=== PATIENT | male | born 1960 | race Hispanic/Latino ===

== ENCOUNTER 2017-08-07 21:12 | Inpatient (IN) | payer OTHER ==
--- NOTE | 2017-08-07 21:19 | ED PDOC ---
Arrival/HPI - General Time Seen by Provider: 08/07/17 21:18 Historian: Patient, Spouse, Other ([facility] ED) - History of Present Illness Narrative History of Present Illness (Text): 08/07/17 21:18 Sebas Sanders is a 57 year old male, whose past medical history includes Type 2 diabetes, hypertension, hyperlipidemia, TIA, carotid stenosis s/p carotid endarterectomy, and psoriasis, who presents to the Emergency department transferred from [facility] Emergency department for possible STEMI tonight. As per [facility] MD, patient with EKG changes inferiorly, reciprocally anteriorly. Patient was administered aspirin and Plavix prior to transfer. states patient has been experiencing chest pain since yesterday and notes associated shortness of breath today which prompted patient's visit to ER. Patient denies abdominal pain, nausea, vomiting, diarrhea, or back pain.Currently states that chest pain is considerbly less. PMD: Dr. Joe Mahajan Time/Duration: Other (yesterday) Symptom Onset: Gradual Activities at Onset: Light Context: Home Past Medical History - Provider Review Nursing Documentation Reviewed: Yes - Infectious Disease Hx of Infectious Diseases: None - Tetanus Immunization Tetanus Immunization: Unknown - Cardiac Hx Cardiac Disorders: No - Pulmonary Hx Respiratory Disorders: No - Neurological Hx Neurological Disorder: No - HEENT Hx HEENT Disorder: No - Renal Hx Renal Disorder: No - Endocrine/Metabolic Hx Diabetes Mellitus Type 2: Yes - Hematological/Oncological Hx Blood Disorders: No - Integumentary Hx Dermatological Disorder: Yes Hx Psoriasis: Yes - Musculoskeletal/Rheumatological Hx Musculoskeletal Disorders: No - Gastrointestinal Hx Gastrointestinal Disorders: No - Genitourinary/Gynecological Hx Genitourinary Disorders: No - Psychiatric Hx Substance Use: No - Anesthesia Hx Anesthesia Reactions: No Family/Social History - Physician Review Nursing Documentation Reviewed: Yes Family/Social History: Unknown Family HX Smoking Status: Heavy Smoker > 10 Cigarettes Daily Hx Alcohol Use: No Hx Substance Use: No Allergies/Home Meds Allergies/Adverse Reactions: Allergies No Known Allergies Allergy (Verified 08/03/16 11:48) Review of Systems - Physician Review All systems were reviewed & negative as marked: Yes - Review of Systems Respiratory: SOB Cardiovascular: Chest Pain Gastrointestinal: Normal. absent: Abdominal Pain, Diarrhea, Nausea, Vomiting Genitourinary Male: Normal. absent: Dysuria, Frequency, Hematuria, Urinary Output Changes Musculoskeletal: Normal. absent: Back Pain, Neck Pain Neurological: Normal. absent: Headache, Dizziness Psychiatric: Normal Physical Exam Vital Signs Reviewed: Yes Temperature: Afebrile Blood Pressure: Normal Pulse: Regular Respiratory Rate: Normal Appearance: Positive for: Non-Toxic Mental Status: Positive for: Alert and Oriented X 3 - Systems Exam Head: Present: Atraumatic, Normocephalic Pupils: Present: PERRL Extroacular Muscles: Present: EOMI Conjunctiva: Present: Normal Mouth: Present: Moist Mucous Membranes Neck: Present: Normal Range of Motion Respiratory/Chest: Present: Clear to Auscultation, Good Air Exchange. No: Respiratory Distress, Accessory Muscle Use Cardiovascular: Present: Regular Rate and Rhythm, Normal S1, S2. No: Murmurs Abdomen: Present: Normal Bowel Sounds. No: Tenderness, Distention, Peritoneal Signs Back: Present: Normal Inspection Upper Extremity: Present: Normal Inspection. No: Cyanosis, Edema Lower Extremity: Present: Normal Inspection. No: Edema Neurological: Present: GCS=15, CN II-XII Intact, Speech Normal Skin: Present: Warm, Dry, Rashes (Psoriatic skin lesions), Normal Color Psychiatric: Present: Alert, Oriented x 3, Normal Insight, Normal Concentration Medical Decision Making ED Course and Treatment: 08/07/16 21:12 Impression: 57 year old male transferred from [facility] satellite Emergency department for possible STEMI. Plan: -- EKG -- Chest X-ray -- Labs, cardiac enzymes, blood type and screen -- Reassess and disposition Prior Visits: Notes and results from previous visits were reviewed. On 08/05/2016, pt was seen in the Emergency department for right leg and arm numbness/weakness and headache. Pt was admitted to the hospital for further evaluation. Progress Notes: 08/07/17 21:16 Pt seen on arrival to Emergency department. EKG reviewed, a flutter with 2:1 conduction at 115 bpm. Acute inferior wall injury with reciprocal anterior wall changes. Code Heart called. 08/07/17 21:[address] Ortez, who is aware and agrees with plan. Requests Heparin bolus at this time only. Pt will be taken to cardiac cath. 08/07/17 21:42 Reviewed Chest X-ray, shows increased pulmonary vascular markings. 08/07/17 22:[address] Tierney, covering for Dr. Mahajan, who is aware and agrees with plan. States pt can go under Dr. Mahajan's service. - Critical Care Critical Care Minutes: 30 minutes - Lab Interpretations Lab Results: 08/07/17 21:17 Lab Results 08/07/17 21:17: WBC 12.9 H D, RBC 4.46, Hgb 12.4 L, Hct 37.6 L, MCV 84.3, MCH 27.8, MCHC 33.0, RDW 13.5, Plt Count 203, MPV 10.6 08/07/17 21:17: PT 12.3, INR 1.13 H, APTT 28.5 - RAD Interpretation Radiology Orders: 08/07/17 21:22 CHEST PORTABLE [RAD] Stat Fare Enforcement Officer: ED Physician - EKG Interpretation Interpreted by ED Physician: Yes Type: 12 lead EKG - Medication Orders Current Medication Orders: Nitroglycerin/Dextrose (Nitroglycerin 50 Mg/250 Ml D5w) 50 mg in 250 mls @ 1.5 mls/hr IV .Q24H PRN; Protocol; 5 MCG/MIN PRN Reason: Titrate per protocol Discontinued Medications Heparin Sodium (Porcine) (Heparin) 4,000 units IV ONCE STA PRN Reason: Protocol Stop: 08/07/17 21:24 Last Admin: 08/07/17 21:24 Dose: 4,000 units eMAR Start Stop Document 08/07/17 21:24 JUDSON (Rec: 08/07/17 21:25 JUDSON [id number]) Intravenous Solution Start Date 08/07/17 Start Time 21:25 End Date 08/07/17 End time 21:25 Total Infusion Time 0 - Scribe Statement The provider has reviewed the documentation as recorded by the Sally Lanier Provider Scribe Attestation: All medical record entries made by the Emilyibjanna were at my direction and personally dictated by me. I have reviewed the chart and agree that the record accurately reflects my personal performance of the history, physical exam, medical decision making, and the department course for this patient. I have also personally directed, reviewed, and agree with the discharge instructions and disposition. Disposition/Present on Arrival - Present on Arrival Any Indicators Present on Arrival: No History of DVT/PE: No History of Uncontrolled Diabetes: No Urinary Catheter: No History of Decub. Ulcer: No History Surgical Site Infection Following: None - Disposition Have Diagnosis and Disposition been Completed?: Yes Diagnosis: STEMI (ST elevation myocardial infarction) Disposition: HOSPITALIZED Disposition Time: 21:50 Patient Plan: Admission Patient Problems: Current Active Problems Problem Status Onset STEMI (ST elevation myocardial infarction) Acute Condition: GUARDED
[2017-08-07] MEDS ORDERED: Nitroglycerin 50mg in D5W 50 MG/250 ML BOTTLE IV PRN (21:20)
[2017-08-07 21:39] VITALS: BMI 23.9
[2017-08-07] MEDS ORDERED: Lidocaine 2% Inj (20ml) ONE (21:40)
[2017-08-07] MEDS ORDERED: Phenylephrine 10 mg/ml Inj ONE (21:40)
[2017-08-07 21:41] LABS: HEMOGLOBIN 12.4 g/dL (14.0-18.0); MEAN CELL VOLUME 84.3 fl (80.0-105.0); MEAN CORPUSCULAR HEMOGLOBIN 27.8 pg (25.0-35.0); MEAN PLATELET VOLUME 10.6 fl (7.0-11.0); RBC 4.46 10^6/uL (3.5-6.1); RED CELL DISTRIBUTION WIDTH 13.5 % (11.5-14.5); WHITE BLOOD COUNT 12.9 10^3/ul (4.5-11.0)
[2017-08-07] MEDS ORDERED: HEPARIN SODIUM/NS 2,000 ML IV ONE (21:41)
[2017-08-07] MEDS ORDERED: Iodixanol 320 MG/ML 100 ML BOTTLE IV ONE (21:41)
[2017-08-07] MEDS ORDERED: Iodixanol 320 MG/ML 200 ML BOTTLE IV ONE (21:41)
[2017-08-07] MEDS ORDERED: Iohexol 350mgl/ml 50 ML ONE (21:41)
[2017-08-07] MEDS ORDERED: Nitroglycerin 50mg in D5W 50 MG/250 ML BOTTLE IV ONE (21:41)
[2017-08-07 21:57] LABS: INR 1.13 (0.93-1.08); PARTIAL THROMBOPLASTIN TIME 28.5 Seconds (25.1-36.5); PROTHROMBIN TIME 12.3 SECONDS (9.4-12.5)
[2017-08-07] MEDS ORDERED: Midazolam 2 MG/2 ML VIAL ONE (22:00)
[2017-08-07 22:21] LABS: ALB/GLOB RATIO 1.3 (1.1-1.8); ALBUMIN 3.8 g/dL (3.0-4.8); ALT/SGPT 54 U/L (7-56); AST/SGOT 47 U/L (17-59); BLOOD UREA NITROGEN 14 mg/dL (7-21); CALCIUM 9.5 mg/dL (8.4-10.5); GFR AFRICAN-AMERICAN > 60; GFR NON-AFRICAN AMERICAN > 60; TROPONIN I 2.09 ng/mL
[2017-08-07] MEDS: Sodium Chloride 0.9% 1,000 ML IV SCH (23:05)
--- NOTE | 2017-08-08 00:04 | CP.PCM.PN ---
Subjective - Date & Time of Evaluation Date of Evaluation: 08/07/17 Time of Evaluation: 21:30 - Subjective Subjective: Mr. Sanders is a 57 year old male with a past medical history significant for DM2 , HTN, HLD, TIA, Carotid Stenosis s/p carotid endarterectomy, and psoriasis, who presented to the [facility] ED after he was transferred from [facility] ED for possible STEMI. As per [facility] MD, patient with EKG changes inferiorly, reciprocally anteriorly. Patient was administered aspirin and Plavix prior to transfer. states patient has been experiencing chest pain since yesterday and notes associated shortness of breath today which prompted patient's visit to ER. Patient was brought in to the ED and a code heart was called at 2116. call center dispatcher residents and night fiction and nonfiction prose writer responded to this code in ED code room. Patient was administered heparin 4000u IV and started on a nitro drip. Patient was transferred to laboratory cureman with cardiac monitoring, oxygen and medical team at bedside. Patient was endorsed yard laborer team, including ecg technician Dr. Chen. Objective - Vital Signs/Intake and Output Vital Signs (last 24 hours): Temp Pulse Resp BP Pulse Ox 98.1 F 105 H 22 121/82 08/07/17 23:15 08/07/17 23:15 08/07/17 23:15 08/07/17 23:15 - Medications Medications: Current Medications Aspirin (Ecotrin) 81 mg PO DAILY [facility] Atorvastatin Calcium (Lipitor) 80 mg PO DIN [facility] Carvedilol (Coreg) 3.125 mg PO BID [facility] Clopidogrel Bisulfate (Plavix) 75 mg PO DAILY [facility] Docusate Sodium (Colace) 100 mg PO BID [facility] Nitroglycerin/Dextrose (Nitroglycerin 50 Mg/250 Ml D5w) 50 mg in 250 mls @ 1.5 mls/hr IV .Q24H PRN; Protocol; 5 MCG/MIN PRN Reason: Titrate per protocol Sodium Chloride (Sodium Chloride 0.9%) 1,000 mls @ 100 mls/hr IV .Q10H [facility] Stop: 08/08/17 04:46 Ondansetron HCl (Zofran Inj) 4 mg IV ONCE PRN PRN Reason: Nausea/Vomiting Zolpidem Tartrate (Ambien) 5 mg PO HS PRN PRN Reason: Insomnia - Labs Labs: PT 12.3 SECONDS (9.4-12.5) 08/07/17 21:17 INR 1.13 (0.93-1.08) H 08/07/17 21:17 APTT 28.5 Seconds (25.1-36.5) 08/07/17 21:17
--- NOTE | 2017-08-08 03:51 | CON ---
REQUESTING PHYSICIAN: Dr. Mahajan. REASON FOR CONSULTATION: Acute myocardial infraction. HISTORY OF PRESENT ILLNESS: This is a 57-year-old man with history of diabetes, who presented to the [facility] ER this evening with complaints of chest pain, which has waxed and waned over the past two days. His EKG showed evidence of an acute inferior myocardial infarction. He was transferred emergently for evaluation and catheterization. He denies any prior cardiac history. He does have history of hypertension, hyperlipidemia, prior TIA and carotid artery disease for which he has undergone a prior carotid endarterectomy. PAST MEDICAL HISTORY: Notable for the problems as mentioned above. He has a history of psoriasis as well. SOCIAL HISTORY: He is a smoker upto a pack per day. Denies alcohol use. He is , lives with his . He works as a dispatcher. ALLERGIES: NONE. MEDICATIONS AT HOME: Reportedly include clonidine, metformin, Lipitor, Neurontin, nicotine patch, Plavix, and Protonix. FAMILY HISTORY: Known family history of premature heart disease. REVIEW OF SYSTEMS: A 10-point review of systems is limited, but otherwise unremarkable. PHYSICAL EXAMINATION GENERAL: He is a middle-aged man, who appears somewhat anxious. VITAL SIGNS: His blood pressure is 110/60 with pulse of 100 and respirations 16. He is afebrile. HEENT: No JVD. CHEST: Bilateral scattered rhonchi. HEART: PMI displaced bilaterally with systolic murmur at the left sternal border. ABDOMEN: Soft and nontender. Normoactive bowel sounds. EXTREMITIES: No edema. SKIN: Warm and dry. PSYCHIATRIC: Normal mood and affect. NEUROLOGIC: No gross motor or sensory issue is appreciable. DIAGNOSTIC DATA: Troponin 2.09, potassium 3.7, BUN and creatinine 14 and 0.6. Glucose 226. White count 12.9, hemoglobin and hematocrit 12.4 and 37.6 with platelet count of 203,000. Chest x-ray is pending. Electrocardiogram revealed inferior ST elevations with reciprocal depressions and sinus rhythm. IMPRESSION: 1. Acute myocardial infarction. 2. Multiple cardiac risk factors given hypertension, diabetes, hyperlipemia, and tobacco abuse. 3. Rest of the problems as noted. RECOMMENDATIONS: The patient will appear emergently to the cardiac catheterization lab and undergo emergency catheterization and possible PCI of suitable anatomy is found. Risks and benefits have been discussed with the patient in detail and he is agreeable to proceed. Further plans are made based upon the results of those findings. Thank you for this consultation. We will be happy to follow along through his hospital course as needed. Joe Ortez MD MTDUbaldo
[2017-08-08 07:28] LABS: BASO # 0.02 K/mm3 (0.0-2.0); BASO % 0.2 % (0.0-3.0); EOS # 0.1 (0.0-0.7); EOS % 0.7 % (1.5-5.0); GRAN # 7.38 (1.4-6.5); GRAN % 82.5 % (50.0-68.0); HEMOGLOBIN 11.2 g/dL (14.0-18.0); LYMPH # 0.8 (1.2-3.4); LYMPH % 9.3 % (22.0-35.0); MEAN CELL VOLUME 84.3 fl (80.0-105.0); MEAN CORPUSCULAR HEMOGLOBIN 27.9 pg (25.0-35.0); MONO # 0.7 (0.1-0.6); MONO % 7.3 % (1.0-6.0); RBC 4.02 10^6/uL (3.5-6.1); RED CELL DISTRIBUTION WIDTH 13.7 % (11.5-14.5); WHITE BLOOD COUNT 8.9 10^3/ul (4.5-11.0)
[2017-08-08 07:29] LABS: BLOOD UREA NITROGEN 12 mg/dL (7-21); CALCIUM 8.8 mg/dL (8.4-10.5); GFR AFRICAN-AMERICAN > 60; GFR NON-AFRICAN AMERICAN > 60
--- NOTE | 2017-08-08 07:40 | CARDCATH ---
PROCEDURE DATE: 08/07/2017 PROCEDURES: 1. Selective left coronary angiography. 2. Left ventriculography. 3. PCI of mid and distal RCA with drug-eluting stents. 4. Right femoral arteriography. 5. Mynx deployment. HISTORY: This is a 57-year-old male with history of hypertension, diabetes, hyperlipidemia and tobacco abuse, who presented to the Emergency Room with an acute inferior myocardial infarction. Emergency catheterization was advised. INDICATION: Acute myocardial infarction. FINDINGS: HEMODYNAMICS: The aortic pressure was 100/60 with left ventricular pressure 100/18. CORONARY ANATOMY: 1. The left main stem was normal. 2. The left anterior descending artery had mild diffuse disease throughout its proximal mid segment. The diagonal branches also had mild diffuse disease. The LAD was fairly large and wrapped around the apex. 3. The left circumflex artery was occluded proximally. No collaterals were seen to the distal vessel. 4. The right coronary artery was dominant, but of fairly small caliber. The left was occluded in the mid portion. LEFT VENTRICULOGRAPHY: Hand injection was performed in the HSU projection which was somewhat limited. There appeared to be evidence of at least moderate inferior hypokinesis. Overall ejection fraction appeared to mild to moderately reduced. CORONARY INTERVENTION: The patient received 4000 units of intravenous heparin in the emergency room and additional 2000 units were administered in the microbiology laboratory manager to achieve an ACT of 245 seconds. The RCA was cannulated with use of a 6-Kazakh JR4 guide catheter with side holes. The lesion in the RCA was successfully crossed with the use of a [place] wire. Additional placement was performed with 2.0 x 12 mm balloon. Following this, a 2.25 x 30 mm Resolute drug-eluting stent was placed in the mid portion of the vessel and inflated to 9 atmospheres. There was 0% residual stenosis within that segment; however, there was mildly diseased segment just proximal to the stent. This was treated with placement of a 2.5 x 12 mm Resolute stent. The stent balloon was then advanced at the initial places into the overlap segment and inflated to 12 atmospheres. Intracoronary nitroglycerin was infused. After revascularization of the distal vessel, had evidence of a long diffuse 80% stenosis which did not improve after intracoronary nitroglycerin infusion. Subsequently, this was then treated with predilation using the 2.0 x 12 mm balloon to about 10 atmospheres. Following this, a 2.25 x 18 mm Resolute drug-eluting stent was advanced into the distal segment and positioned and inflated to 10 atmospheres. There was 0% residual stenosis following intervention and VICKI grade 3 flow was restored. Preprocedurally, the VICKI grade flow was 0. RIGHT FEMORAL ARTERIOGRAPHY: The right femoral arteriography was performed in the HSU projection. This revealed no evidence of significant disease. The puncture site appeared to be at the appropriate level. This was then closed with deployment of Mynx device. CONCLUSION: 1. Acute inferior myocardial infarction due to acutely occluded RCA, successfully treated with drug-eluting stent placement as described above. 2. Chronically occluded left circumflex artery. 3. [id number] reduced LV systolic function. 4. The patient will be admitted to CCU. He will be treated with aspirin and Plavix for at least 1 year. Beta eden therapy and statin therapy will be initiated and intensified. An echocardiogram will be obtained to better assess LV function. The need for aggressive risk factor control, especially control of diabetes and smoking abstinence, will be advised. Joe Ortez MD cc: Marc Mahajan MD MTDD
[2017-08-08 08:13] LABS: TROPONIN I 5.97 ng/mL
[2017-08-08 08:13] LABS: PH,URINE 5.5 (4.7-8.0); URINE BILIRUBIN NEGATIVE (NEGATIVE); URINE BLOOD NEGATIVE (NEGATIVE); URINE GLUCOSE (UA) 500 mg/dL (NEGATIVE); URINE LEUKOCYTE ESTERASE NEGATIVE Leu/uL (NEGATIVE); URINE NITRATE NEGATIVE (NEGATIVE); URINE PROTEIN TRACE mg/dL (<30 mg/dL)
[2017-08-08 08:22] LABS: URINE APPEARANCE CLEAR (CLEAR); URINE COLOR YELLOW (YELLOW)
[2017-08-08 08:35] LABS: URINE BACTERIA TRACE (NEG); URINE RBC NEGATIVE /hpf (0-2); URINE WBC 0 - 2 /hpf (0-6)
[2017-08-08 08:43] LABS: ALB/GLOB RATIO 1.2 (1.1-1.8); ALBUMIN 3.4 g/dL (3.0-4.8); ALT/SGPT 47 U/L (7-56); AST/SGOT 54 U/L (17-59); BILIRUBIN,DIRECT 0.5 mg/dL (0.0-0.4); BLOOD UREA NITROGEN 12 mg/dL (7-21); CALCIUM 8.7 mg/dL (8.4-10.5); GFR AFRICAN-AMERICAN > 60; GFR NON-AFRICAN AMERICAN > 60; HDL CHOLESTEROL 52 mg/dL (29-60); MAGNESIUM 1.4 mg/dL (1.7-2.2); URIC ACID 3.6 mg/dL (3.5-8.5)
[2017-08-08 08:45] LABS: BARBITURATES, UR NEGATIVE (NEGATIVE); OPIATES, UR NEGATIVE (NEGATIVE); PHENCYCLIDINE, UR NEGATIVE (NEGATIVE)
--- NOTE | 2017-08-08 08:47 | RAD ---
HISTORY: Chest pain COMPARISON: 08/05/2016 FINDINGS: LUNGS: The lungs are well inflated. There interstitial thickening. No consolidation. PLEURA: No significant pleural effusion identified, no pneumothorax apparent. CARDIOVASCULAR: Normal. OSSEOUS STRUCTURES: No significant abnormalities. VISUALIZED UPPER ABDOMEN: Normal. OTHER FINDINGS: None. IMPRESSION: Diffuse interstitial thickening may represent interstitial edema, interstitial pneumonitis or interstitial lung disease. Lymphangitis carcinomatosis is also a consideration for which correlation with a history of known are suspected carcinoma is advised. Follow-up is advised.
[2017-08-08] MEDS: Insulin Human NPH 1 UNITS/0.01 ML SC SCH ×2 (08:50→17:05)
[2017-08-08 08:53] LABS: BENZODIAZEPINES, UR POSITIVE (NEGATIVE)
[2017-08-08 09:00] LABS: LDL CHOLESTEROL < 30 mg/dL (0-129)
[2017-08-08 09:07] LABS: FREE T4 0.98 ng/dL (0.78-2.19)
--- NOTE | 2017-08-08 09:48 | CARD ---
APPROVED REPORT EKG Measurement Heart [id number] P70 [id number] <Conclusion> Atrial flutter with 2:1 AV conduction Inferior infarct, possibly acute Marked ST abnormality, possible anteroseptal subendocardial injury ACUTE DE Consider right ventricular involvement in acute inferior infarct Abnormal ECG
[2017-08-08] MEDS ORDERED: Potassium Chloride 20 mEq ER Tab PO ONE (09:58)
--- NOTE | 2017-08-08 10:08 | PN ---
DATE: 08/08/2017 SUBJECTIVE: The patient is seen lying in bed in the CCU. He is currently comfortable. He denies any recurrent chest pain. He is mildly tachycardic. His troponin this morning is 5.97, up from 2.09 yesterday. His morning electrocardiogram is pending. CURRENT MEDICATIONS: Include carvedilol 3.125 mg b.i.d, Ecotrin once daily, Plavix once daily, insulin coverage, Lipitor 80 mg daily. OBJECTIVE: GENERAL: He is a middle-aged male, appears comfortable at rest. VITAL SIGNS: His blood pressure is 106/76 with a pulse of 110, respirations are 16. He is afebrile. HEENT: No JVD. CHEST: A few scattered rhonchi. HEART: PMI displaced laterally with systolic murmur in the left sternal border. ABDOMEN: Soft, nontender. Normoactive bowel sounds. EXTREMITIES: No edema with trace distal pulses. A small right groin hematoma is present, but no evidence of bruit or thrill. DIAGNOSTIC DATA: Potassium is 3.8, BUN and creatinine 12 and 0.7 with glucose of 207. White count 8.9, hemoglobin and hematocrit 11.2 and 33.9 with a platelet count of 183,000. Troponin as mentioned is 5.97. Cholesterol is 135 with triglycerides of 147. HDL is less than 30. Toxicology screen is positive for cocaine. IMPRESSION: 1. Status post acute inferior myocardial infarction, treated with drug-eluting stenting of the right coronary artery. 2. Chronically occluded circumflex. 3. Apparent cocaine abuse. 4. Diabetes and hypertension. 5. History of tobacco abuse. 6. Carotid disease, status post prior carotid endarterectomy. RECOMMENDATIONS: His current medications will be continued for now. Coreg dose will be increased as tolerated. An echocardiogram will be reviewed. Addition of an WAYNE inhibitor or angiotensin receptor eden will be planned as blood pressure allows. The need for aggressive risk factor control and avoidance of substance abuse will be discussed with him as well. The patient can be gotten out of bed and ambulated as tolerated. Followup enzymes as well as cardiac enzymes will be planned. We will continue to follow and make further recommendations as appropriate. Joe Ortez MD
[2017-08-08] MEDS: Magnesium Sulfate 2 GM in Sodium Chloride 0.9% 100 ML IVPB SCH ×2 (10:34→12:00)
--- NOTE | 2017-08-08 10:35 | CP.PCM.PN ---
Subjective - Date & Time of Evaluation Date of Evaluation: 08/08/17 Time of Evaluation: 07:30 - Subjective Subjective: Patient seen and examined reports to be doing well, denies cp, sob. Objective - Vital Signs/Intake and Output Vital Signs (last 24 hours): Temp Pulse Resp BP Pulse Ox 98.1 F 96 H 28 H 83/47 L 85 L 08/08/17 00:15 08/08/17 10:20 08/08/17 10:20 08/08/17 10:00 08/08/17 10:20 Intake and Output: 08/08/17 08/08/17 06:59 18:59 Intake Total 400 Output Total 300 Balance 100 - Medications Medications: Current Medications Aspirin (Ecotrin) 81 mg PO DAILY [facility] Last Admin: 08/08/17 09:24 Dose: 81 mg Atorvastatin Calcium (Lipitor) 80 mg PO DIN [facility] Carvedilol (Coreg) 12.5 mg PO BID [facility] Last Admin: 08/08/17 09:31 Dose: Not Given Clopidogrel Bisulfate (Plavix) 75 mg PO DAILY [facility] Last Admin: 08/08/17 09:23 Dose: 75 mg Docusate Sodium (Colace) 100 mg PO BID [facility] Last Admin: 08/08/17 09:30 Dose: 100 mg Magnesium Sulfate 2 gm/ Sodium (Chloride) 104 mls @ 102 mls/hr IVPB Q2H [facility] Stop: 08/08/17 13:02 Insulin Human Lispro (Humalog Med) 0 units SC AC [facility] PRN Reason: Protocol Insulin Human NPH (Humulin N) 10 units SC ACB [facility] Last Admin: 08/08/17 08:50 Dose: 10 units Insulin Human NPH (Humulin N) 10 units SC DAILY@1745 [facility] Ondansetron HCl (Zofran Inj) 4 mg IV ONCE PRN PRN Reason: Nausea/Vomiting Ondansetron HCl (Zofran Inj) 4 mg IVP Q4H PRN PRN Reason: Nausea/Vomiting Pantoprazole Sodium (Protonix Ec Tab) 40 mg PO 0600,1600 [facility] Zolpidem Tartrate (Ambien) 5 mg PO HS PRN PRN Reason: Insomnia Last Admin: 08/08/17 02:32 Dose: 5 mg - Labs Labs: 08/08/17 06:50 08/08/17 08:20 PT 12.3 SECONDS (9.4-12.5) 08/07/17 21:17 INR 1.13 (0.93-1.08) H 08/07/17 21:17 APTT 28.5 Seconds (25.1-36.5) 08/07/17 21:17 - Constitutional Appears: Well, Non-toxic, No Acute Distress - Eye Exam Eye Exam: Normal appearance - ENT Exam ENT Exam: Mucous Membranes Moist - Respiratory Exam Respiratory Exam: Clear to Ausculation Bilateral, NORMAL BREATHING PATTERN - Cardiovascular Exam Cardiovascular Exam: REGULAR RHYTHM, +S1, +S2 - GI/Abdominal Exam GI & Abdominal Exam: Soft, Normal Bowel Sounds - Extremities Exam Extremities Exam: Normal Inspection - Neurological Exam Neurological Exam: Alert, Awake, Oriented x3 Assessment and Plan - Assessment and Plan (Free Text) Assessment: 57yo male a/w STEMI s/p MALACHI to RCA HTN HLD DM CAD s/p STEMI s/p PCI Cocaine use Recommend: - supp o2 as needed - panculture, check procal, UCx, BCx - IV hydration - ASA, Plavix, Statin, BB - Check Lipid Panel, HgbA1C - ECHO - cardiology follow up - Diabetic diet - GI ppx - DVT ppx - Monitor in CCU
[2017-08-08] MEDS: Insulin Lispro (humaLOG) MEDIUM Coverage SC SCH ×2 (11:19→17:04)
[2017-08-08] MEDS ORDERED: Sodium Chloride 0.9% 1,000 ML IV SCH (12:30)
--- NOTE | 2017-08-08 13:05 | CP.PCM.PN ---
Subjective - Date & Time of Evaluation Date of Evaluation: 08/08/17 Time of Evaluation: 12:47 - Subjective Subjective: Reanna Thornton, PGY1, Medicine Progress Note for Dr Mahajan: Patient seen and examined at bedside. Pt s/p PCI overnight for an acute inferior wall GA. Pt doing well post procedure, denies cp, sob, diaphoresis, abdominal pain, nausea, vomiting, urinary symptoms. Reports mild headache. Objective - Vital Signs/Intake and Output Vital Signs (last 24 hours): Temp Pulse Resp BP Pulse Ox 98.1 F 96 H 28 H 83/47 L 85 L 08/08/17 00:15 08/08/17 10:20 08/08/17 10:20 08/08/17 10:00 08/08/17 10:20 Intake and Output: 08/08/17 08/08/17 06:59 18:59 Intake Total 400 Output Total 300 Balance 100 - Medications Medications: Current Medications Acetaminophen (Tylenol 325mg Tab) 650 mg PO Q4H PRN PRN Reason: Pain, moderate (4-7) Aspirin (Ecotrin) 81 mg PO DAILY [facility] Last Admin: 08/08/17 09:24 Dose: 81 mg Atorvastatin Calcium (Lipitor) 80 mg PO DIN [facility] Carvedilol (Coreg) 12.5 mg PO BID [facility] Last Admin: 08/08/17 09:31 Dose: Not Given Clopidogrel Bisulfate (Plavix) 75 mg PO DAILY [facility] Last Admin: 08/08/17 09:23 Dose: 75 mg Docusate Sodium (Colace) 100 mg PO BID [facility] Last Admin: 08/08/17 09:30 Dose: 100 mg Magnesium Sulfate 2 gm/ Sodium (Chloride) 104 mls @ 102 mls/hr IVPB Q2H [facility] Stop: 08/08/17 13:02 Last Admin: 08/08/17 12:00 Dose: 102 mls/hr Sodium Chloride (Sodium Chloride 0.9%) 1,000 mls @ 100 mls/hr IV .Q10H [facility] Insulin Human Lispro (Humalog Med) 0 units SC AC [facility] PRN Reason: Protocol Last Admin: 08/08/17 11:19 Dose: 1 units Insulin Human NPH (Humulin N) 10 units SC ACB [facility] Last Admin: 08/08/17 08:50 Dose: 10 units Insulin Human NPH (Humulin N) 10 units SC DAILY@1745 [facility] Ondansetron HCl (Zofran Inj) 4 mg IV ONCE PRN PRN Reason: Nausea/Vomiting Ondansetron HCl (Zofran Inj) 4 mg IVP Q4H PRN PRN Reason: Nausea/Vomiting Pantoprazole Sodium (Protonix Ec Tab) 40 mg PO 0600,1600 [facility] Zolpidem Tartrate (Ambien) 5 mg PO HS PRN PRN Reason: Insomnia Last Admin: 08/08/17 02:32 Dose: 5 mg - Labs Labs: 08/08/17 06:50 08/08/17 08:20 PT 12.3 SECONDS (9.4-12.5) 08/07/17 21:17 INR 1.13 (0.93-1.08) H 08/07/17 21:17 APTT 28.5 Seconds (25.1-36.5) 08/07/17 21:17 - Constitutional Appears: Non-toxic, No Acute Distress, Older Than Stated Age - Head Exam Head Exam: ATRAUMATIC, NORMOCEPHALIC - Eye Exam Eye Exam: EOMI, PERRL. absent: Conjunctival injection, Scleral icterus Pupil Exam: NORMAL ACCOMODATION, PERRL - ENT Exam ENT Exam: Mucous Membranes Moist - Neck Exam Neck Exam: Full ROM - Respiratory Exam Respiratory Exam: Clear to Ausculation Bilateral. absent: Accessory Muscle Use , Respiratory Distress - Cardiovascular Exam Cardiovascular Exam: RRR, +S1, +S2. absent: Murmur - GI/Abdominal Exam GI & Abdominal Exam: Soft, Normal Bowel Sounds. absent: Distended, Guarding, Rigid, Organomegaly, Rebound - Extremities Exam Extremities Exam: absent: Calf Tenderness, Pedal Edema - Neurological Exam Neurological Exam: Alert, Awake, Oriented x3 - Psychiatric Exam Psychiatric exam: Normal Affect, Normal Mood - Skin Skin Exam: Dry, Normal Color, Warm Assessment and Plan - Assessment and Plan (Free Text) Assessment: 57 years old male with hx of CVA, carotid stenosis s/p carotid endarterectomy, HLD, DM2, HTN, psoriasis, admitted for acute inferior wall GA, s/p 2 stents placement yesterday in RCA: STEMI, s/p 2 stents in RCA: - Initial EKG showed HR 115, atrial flutter, acute inferior wall GA with reciprocal anterior wall changes. - CXR showed increased pulmonary vascular markings. - Cardiac cath yesterday with Dr Ortez showed mild to moderate LV systolic function. Chronically occluded left circumflex artery. Acute inferior wall GA due to acutely occluded RCA - 2 stents placed. - Reports improvement in chest pain, symptoms this AM - On ASA, BB, Plavix, Statin as per Cardio. F/u further recs of Cardiology/ echocardiogram. - cont to monitor. Hx of DM: - will hold home metformin due to risk of LA and renal insufficiency while in this acute setting. - Start ISS. Humulin 10 units daily. - Cont to monitor BS Cocaine/tobacco abuse: - Advised cessation PPX: Protonix, SCDs Case discussed with Dr Mahajan. Reanna Thornton, PGY1
[2017-08-08] MEDS: Pantoprazole 40 mg EC Tab PO SCH (16:10)
--- NOTE | 2017-08-08 17:35 | CARD ---
APPROVED REPORT EKG Measurement Heart [id number] <Conclusion> Normal sinus rhythm Possible Left atrial enlargement Low voltage QRS ST depression, consider subendocardial injury or digitalis effect Nonspecific T wave abnormality Prolonged QT Abnormal ECG
--- NOTE | 2017-08-08 19:04 | HP ---
HISTORY OF PRESENT ILLNESS: The patient is a 57-year-old male, who was transferred from the [facility] satellite ER from [place] for ST elevation PR. According to the ER physician and the patient evaluation, the patient presented to the [facility] satellite ER on [facility] with complaints of chest pain since last 24 hours some shortness of breath. Which made the patient go to the Emergency Room of the [facility]. The patient underwent initial evaluation at the [facility] ER on [place], [place], was found to have inferior ST elevation PR and the patient was transferred to [facility] Emergency Room. Code heart was called and the patient was taken for cardiac catheterization. REVIEW OF SYSTEMS: A 13-system review is positive for shortness of breath and chest pain. Other 13-system review was done, pertinent positive negative dictated above. CODE STATUS: Full code. LIVING WILL ADVANCE DIRECTIVE: None. ALLERGIES: None. HEIGHT: 5 feet 8 inches. WEIGHT: 157. BMI is 24. HOME MEDICATIONS: 1. Metformin 1000 mg twice a day. 2. Clonidine 0.1 mg twice a day. 3. Protonix 40 mg daily. 4. Nicotine patch 21 mg daily. 5. Neurontin 300 mg at bedtime. 6. Plavix 75 mg daily. 7. Lipitor 40 mg daily. SOCIAL HISTORY: Positive for smoker. Positive for substance abuse. ACTIVITY: The patient is extremely noncompliant with followup. The patient has lost from followup for more than 4-6 months. PAST MEDICAL HISTORY: Significant for type 2 diabetes mellitus, history of hypertension, history of nicotine and substance abuse, history of cerebrovascular infarct, history of left carotid stenosis, history of left hemispheric stroke, history of left carotid endarterectomy, history of severe noncompliance and poor compliance, history of peripheral vascular disease with right-sided total occlusion, bilateral posterior tibial occlusion and peripheral vascular disease, history of poor compliance, history of possible 80-99% focal stenosis of the superior aspect of the left endarterectomy site, history of 40-59% proximal right internal carotid artery stenosis, history of bilateral lower extremity peripheral vascular disease, history of nonspecific axillary lymphadenopathy, history of left vocal cord thickening and asymmetry of the piriform sinuses, history of possible vocal cord paralysis, history of cervical, supraclavicular, axillary lymphadenopathy, history of left internal carotid artery critical stenosis and right internal carotid artery mild stenosis, history of lumbar spine degenerative disc disease with L4-L5 and L5-S1 disc herniation and thecal sac indentation, history of multiple acute and subacute left cerebral infarct involving left cerebral hemisphere, left temporal lobe, left basal ganglia, left parietal lobe, left centrum semiovale, left frontal convexity, history of peripheral arterial disease. The past medical history is significant for left carotid stenosis, history of hypertension, history of mild septal hypokinesis on the echocardiogram, history of left ventricular hypertrophy, history of hyperlipidemia, history of psoriasis, history of carotid stenosis, history of carotid endarterectomy history of cocaine abuse,. Past medical history is significant for history of normocytic anemia, history of hypomagnesemia, history of gait dysfunction, history of hypertriglyceridemia, history of uncontrolled diabetes mellitus, history of diabetic neuropathy, history of cerebrovascular accident. The patient's past medical history is also significant for noncompliance. PHYSICAL EXAMINATION: VITAL SIGNS: T-max 98.1, heart rate 100 per minute, blood pressure 120/83, respiration is 18-22, O2 sat is 100%. The patient is seen lying in the stretcher. HEAD: Normocephalic, atraumatic. HEENT: Shows pinkish conjunctivae. Dry oral mucosa. No neck rigidity. CHEST: Kyphosis. LUNGS: Shows no rales, crackles or wheezing. Positive left carotid endarterectomy scar noted. CARDIOVASCULAR: Shows S1, S2, regular rhythm. No audible murmur, gallop or rub. ABDOMEN: Shows no hepatic splenomegaly. No guarding. No rigidity. No rebound tenderness.. GENITALIA: Male. RECTAL: Deferred. EXTREMITY: Shows no pitting, no calf tenderness, no Alejandra's signs. MUSCULOSKELETAL: Shows a body mass index of 24. NEUROLOGIC: The patient is alert, awake, oriented x3. Cranial nerves II through XII. Examination limited. Gait examination is not tested. DIAGNOSTICS: WBC 12.9, hemoglobin/hematocrit 12.4, 37.6, platelet 203. PT/PTT 12.3, 28.5. Sodium 137, potassium 3.7, chloride 100, CO2 28, anion gap 12, BUN 14, creatinine 0.7, GFR greater than 60, glucose 226, calcium 9.5, alk phos 152, LDH 714. Troponin 2.09. Urine analysis is ordered, results pending. Blood type ordered, results pending. Chest x-ray was done in the Emergency Room, which shows interstitial lung disease and thickening. Questionable interstitial edema and diffuse interstitial thickening versus interstitial pneumonitis, interstitial lung disease. EKG was done in the Emergency Room which shows questionable atrial flutter with acute ST elevation in II, III, aVF and ST depression in I aVL and V4, V5-V6. Code heart was called. The patient is to be taken for cardiac catheterization with Dr. Ortez. IMPRESSION AND PLAN: 1. Acute inferior wall ST elevation myocardial infarction with acute coronary syndrome. 2. Tachycardia. 3. Leukocytosis. 4. Normocytic anemia. 5. History of type 2 diabetes, dyslipidemia, history of cerebral infarct with carotid stenosis, history of poor compliance. 6. Hyperglycemia. 7. Acute ST elevation myocardial infarction with elevated troponin. 8. Nicotine and substance abuse disorder. 9. Questionable interstitial pneumonitis versus interstitial lung disease with diffuse interstitial thickening versus interstitial edema, etiology undetermined. 10. Code heart. 11. Status post left coronary angiogram, left ventriculography, history of angioplasty and drug-eluting stent placement of the mid and distal right coronary artery. 12. History of hypertension, diabetes, dyslipidemia, nicotine dependence. 13. Acute ST elevation inferior wall myocardial infarction. 14. Diffuse disease throughout the proximal and mid segment of the left anterior descending and diagonal branch. 15. Proximally occluded left circumflex artery. 16. Acute inferior wall ST elevation myocardial infarction due to acutely occluded right coronary artery status post drug-eluting stent placement. 17. Chronically occluded left circumflex artery. 18. Mild to moderately reduced left ventricular systolic function. 19. Cardiomyopathy, etiology undetermined. 20. Questionable atrial flutter. 21. Acute ST elevation inferior wall myocardial infarction with anteroseptal subendocardial injury. 22. History of noncompliance. 23. Uncontrolled diabetes mellitus with hyperglycemia. PLAN: At this time, the patient will be admitted to ICU, post angioplasty and post cardiac cath for post code heart. The patient has been ordered serial labs. The patient has been ordered medications as follows, Ambien 5 mg at bedtime p.r.n., Coreg 12.5 twice a day, aspirin 81 daily. The patient is started on basal and bolus insulin. The patient was started on statins. The patient is started on Plavix. The patient is started on proton pump inhibitor. The patient is started on Zofran 4 mg daily. Repeat serial EKGs ordered. Echocardiogram ordered. The patient is on heart healthy diet. The patient's condition, diagnosis was extensively explained to the patient and the patient's daughter, Cori at length. I have explained to the patient's daughter that the patient has not been compliant with his medications and follow up, which the family is very much aware of. The patient's prognosis is overall guarded to poor which has been explained to the patient and the patient's daughter, Cori at length. At present, the patient's further management will be dependent upon the patient's clinical condition, hemodynamic status and as per the patient response to therapeutic intervention, as per the patient's diagnostic test results and as per recommendation by all the physicians involved in the care of the patient. Time spent in the entire management more than 1 hour 55 minutes. Dictated and electronically signed, not read. Signing off, Marc Mahajan MD
--- NOTE | 2017-08-08 22:11 | PN ---
DATE: 08/08/2017 SUBJECTIVE: The patient is seen now in CCU bed 7. The patient is lying in the bed. The patient is comfortable. The patient does not appear to be in any distress. Overnight nurse's notes were reviewed. The patient was seen by resident care aid. The patient was seen by the social media marketer. Overnight events were noted. MEDICATIONS: The patient's current medications; 1. Ambien 5 mg h.s. p.r.n. 2. Colace 100 mg twice a day. 3. Coreg 12.5 twice a day. 4. Aspirin 81 mg daily. 5. Humalog medium dose sliding scale coverage and NPH 10 units with breakfast and dinner. 6. The patient was given nicotine patch 21 mg daily. 7. Plavix 75 mg daily. 8. Protonix 40 mg daily. 9. Normal saline 0.9 at 100 mL an hour. 10. Tylenol 650 q.4 p.r.n. 11. Xopenex nebulizer 0.63 mg every 6 hours. 12. Zofran 4 mg IV q. 4. OBJECTIVE: VITAL SIGNS: T-max 98.7. Telemetry shows sinus rhythm, sinus tachycardia. Heart rate was noted to be in high 90s to low 100. Blood pressure in the last 24 hours, the patient had averaging blood pressures around systolic of 90, diastolic in about 50s and 60s mmHg, respirations is 23, 31, 28, 33, 34, O2 sat 77%, 88%, 86%. HEAD: Normocephalic, atraumatic. HEENT: Shows pinkish conjunctivae. Dry oral mucosa. No neck rigidity. Positive carotid endarterectomy surgical scar. LUNGS: Shows occasional rhonchi bilaterally. CARDIOVASCULAR: S1, S2. Questionable soft systolic murmur at left sternal border, right second intercostal space, left second intercostal space. ABDOMEN: Soft. Positive bowel sound. No hepatosplenomegaly noted. No organomegaly noted. No guarding, no rebound tenderness, no rigidity. GENITALIA: Male. RECTAL: Deferred. EXTREMITIES: Shows no pitting edema, no calf tenderness, no Homans sign. SKIN: Shows positive psoriasis. MUSCULOSKELETAL: Shows a body mass index of 24. NEUROLOGIC: The patient is alert, awake, oriented x3. Cranial nerves II through XII limited. Gait examination is not tested. VASCULAR: Palpable pulses. DIAGNOSTICS: 08/08/2017; WBC 8.9, hemoglobin/hematocrit 11.2/33.9, platelet 183. Granulocytes 80, 3% segs. Sodium 136, potassium 3.8, chloride 102, CO2 26, anion gap 11, BUN 12, creatinine 0.7, GFR greater than 60, glucose 207, fingerstick blood sugar 134, 182, 206, hemoglobin A1c 10.8, uric acid 3.6. LFTs are normal. Magnesium 1.4, alk phos 128, TSH 1.05, T4 6.0, cholesterol 135, LDL less than 30, triglyceride 147. Urine, trace protein, 500 glucose, 15 ketones, trace bacteria. Urine drug screen positive for cocaine. Blood bank O+. Chest x-ray report was reviewed. Echocardiogram done, results pending. IMPRESSION: 1. Status post Code Heart. 2. Status post acute inferior wall ST elevation myocardial infarction, status post angioplasty and drug-eluting stent placement of the right coronary artery. 3. Left circumflex chronic occlusion. 4. Cocaine abuse and dependence. 5. Nicotine abuse and dependence. 6. Status post carotid endarterectomy. 7. History of poor compliance and noncompliance. 8. Tachycardia. 9. Hypoxemia. 10. Transient hypotension. 11. Tachypnea. 12. Leukocytosis with granulocytosis. 13. Normocytic anemia. 14. Uncontrolled diabetes mellitus with hyperglycemia and hemoglobin A1c of 10.8. 15. Acute ST elevation myocardial infarction with elevated troponin. 16. Hypomagnesemia. 17. Borderline low normal hypokalemia. 18. Hyperglycemia. 19. Proteinuria, glycosuria and bacteriuria. 20. Cocaine abuse with urine drug screen positive for cocaine. 21. Diffuse interstitial pulmonary thickening representing interstitial edema versus interstitial pneumonitis versus interstitial lung disease, etiology undetermined. 22. Questionable transient atrial flutter. 23. Status post selective left coronary angiogram and left ventriculogram. 24. Status post angioplasty of the mid and distal right coronary artery with drug-eluting stents. 25. History of hypertension, diabetes, dyslipidemia. 26. Diffuse proximal and mid segment left anterior descending artery disease and diffuse disease of the diagonal branches. 27. Proximal occlusion of the left circumflex artery. 28. Midportion right coronary artery occlusion. 29. Moderate inferior hypokinesis. 30. Moderately reduced left ventricular ejection fraction. 31. Questionable ischemic cardiomyopathy. 32. [id number] decreased left ventricular systolic function. 33. 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 34. Acute occlusion of the right coronary artery with acute ST elevation inferior wall myocardial infarction status post angioplasty and drug-eluting stent placement. PLAN: Plan at this time, the patient's echocardiogram results are pending. The patient has been ordered serial labs. The patient has been ordered IV fluid. The patient is also ordered oxygen 2 liters, continuous humidifier. A repeat EKG has been ordered. The patient is on heart-healthy diet. The patient has been ordered out of bed. The patient's echocardiogram results will be reviewed when available. The patient has been ordered repeat labs for the morning.. As mentioned before, the patient's daughter was updated about the patient's condition, overall guarded to poor prognosis due to the patient's noncompliance and poor compliance and continued use of recreational drug use and continued noncompliance with medication and follow up. All of the above was explained to the patient's daughter at length and all questions concerned answered. Dictated and electronically signed, not read. Marc Mahajan MD
[2017-08-09] MEDS: Sodium Chloride 0.9% 1,000 ML IV SCH (03:49)
[2017-08-09 06:59] LABS: HEMOGLOBIN 11.9 g/dL (14.0-18.0); MEAN CELL VOLUME 85.1 fl (80.0-105.0); MEAN CORPUSCULAR HEMOGLOBIN 28.2 pg (25.0-35.0); MEAN CORPUSCULAR HGB CONC 33.1 g/dl (31.0-37.0); MEAN PLATELET VOLUME 10.6 fl (7.0-11.0); RBC 4.22 10^6/uL (3.5-6.1); RED CELL DISTRIBUTION WIDTH 13.8 % (11.5-14.5); WHITE BLOOD COUNT 9.9 10^3/ul (4.5-11.0)
[2017-08-09 07:51] LABS: ALB/GLOB RATIO 1.1 (1.1-1.8); ALBUMIN 3.4 g/dL (3.0-4.8); ALT/SGPT 56 U/L (7-56); AST/SGOT 120 U/L (17-59); BILIRUBIN,DIRECT 0.6 mg/dL (0.0-0.4); BLOOD UREA NITROGEN 14 mg/dL (7-21); CALCIUM 8.7 mg/dL (8.4-10.5); GFR AFRICAN-AMERICAN > 60; GFR NON-AFRICAN AMERICAN > 60; MAGNESIUM 1.9 mg/dL (1.7-2.2)
[2017-08-09] MEDS: Insulin Lispro (humaLOG) MEDIUM Coverage SC SCH ×3 (07:59→16:43)
[2017-08-09] MEDS: Insulin Human NPH 1 UNITS/0.01 ML SC SCH ×2 (08:00→16:44)
[2017-08-09] MEDS: Pantoprazole 40 mg EC Tab PO SCH ×2 (09:14→16:47)
--- NOTE | 2017-08-09 09:22 | CARD ---
APPROVED REPORT EXAM: Two-dimensional and M-mode echocardiogram with Doppler and color Doppler. INDICATION NV 2D DIMENSIONS Left Atrium (2D)4.1 (1.6-4.0cm)IVSd0.9 (0.7-1.1cm) LVDd4.8 (3.9-5.9cm)PWd1.0 (0.7-1.1cm) LVDs4.3 (2.5-4.0cm)FS (%) 11.8 % LVEF (%)25.7 (>50%) M-Mode DIMENSIONS Aortic Root3.40 (2.2-3.7cm)Aortic Cusp Exc.1.90 (1.5-2.0cm) Aortic Valve AoV Peak Vfgqkfbp685.0cm/Monalisa Peak GR.7mmHgLVOT Peak Qpftvrhk28.2cm/s LVOT VTI15.10cm Mitral Valve MV E Lsflvoyk565.0cm/sMV A Kgacpwdz30.0cm/sE/A ratio2.5 TDI Lateral E' Peak V7.99cm/sMedial E' Peak V7.51cm/sE/Lateral E'12.8 E/Medial E'13.6 Pulmonary Valve PV Peak Ukqilqyn52.8cm/sPV Peak Grad.1mmHg Tricuspid Valve TR Peak Znizwawj908hw/sRAP [id number] Peak Gr.34mmHg [id number] LEFT VENTRICLE The left ventricle is normal size. There is normal left ventricular wall thickness. The systolic function is moderately to severely impaired. Moderate global hypokinesis with severe inferolateral hypokinesis. RIGHT VENTRICLE The right ventricle is normal size. The right ventricular systolic function is normal. ATRIA The left atrium size is normal. The right atrium size is normal. The interatrial septum is intact with no evidence for an atrial septal defect. AORTIC VALVE The aortic valve is mildly sclerotic. No aortic regurgitation is present. There is no aortic valvular stenosis. MITRAL VALVE The mitral valve is normal in structure. Mitral regurgitation is moderate. TRICUSPID VALVE The tricuspid valve is normal in structure. There is mild tricuspid regurgitation. PULMONIC VALVE The pulmonary valve is normal in structure. GREAT VESSELS The aortic root is normal in size. The IVC is normal in size and collapses >50% with inspiration. PERICARDIAL EFFUSION There is no pleural effusion. There is a trace pericardial effusion. <Conclusion> Normal chamber size. Moderate to severely reduced LV systolic function with global hypokinesis and severe inferolateral hypokinesis. Moderate MR. Mild TR.
[2017-08-09] MEDS ORDERED: Sodium Chloride 0.9% 1,000 ML IV SCH (09:30)
--- NOTE | 2017-08-09 10:09 | CP.PCM.PN ---
Subjective - Date & Time of Evaluation Date of Evaluation: 08/09/17 Time of Evaluation: 10:05 - Subjective Subjective: Reanna Thornton, PGY1, Medicine Progress Note for Dr Mahajan: Patient seen and examined at bedside. No acute events overnight. Patient had BM yesterday. Pt states that he ate fruit salad yesterday, tolerate it well. Denies fever, chills, headache, nausea, vomiting, sob, cp, abdominal pain, urinary complaints. Pt states that he will eat more today. Objective - Vital Signs/Intake and Output Vital Signs (last 24 hours): Temp Pulse Resp BP Pulse Ox 98.4 F 94 H 30 H 123/61 85 L 08/09/17 06:00 08/09/17 09:12 08/09/17 08:40 08/09/17 09:12 08/09/17 08:40 Intake and Output: 08/09/17 08/09/17 06:59 18:59 Intake Total 1400 Output Total 0 Balance 1400 - Medications Medications: Current Medications Acetaminophen (Tylenol 325mg Tab) 650 mg PO Q4H PRN PRN Reason: Pain, moderate (4-7) Last Admin: 08/08/17 12:52 Dose: 650 mg Aspirin (Ecotrin) 81 mg PO DAILY [facility] Last Admin: 08/09/17 09:12 Dose: 81 mg Atorvastatin Calcium (Lipitor) 80 mg PO DIN [facility] Last Admin: 08/08/17 17:10 Dose: 80 mg Carvedilol (Coreg) 12.5 mg PO BID [facility] Last Admin: 08/09/17 09:12 Dose: 12.5 mg Clopidogrel Bisulfate (Plavix) 75 mg PO DAILY [facility] Last Admin: 08/09/17 09:12 Dose: 75 mg Docusate Sodium (Colace) 100 mg PO BID [facility] Last Admin: 08/09/17 09:12 Dose: 100 mg Sodium Chloride (Sodium Chloride 0.9%) 1,000 mls @ 100 mls/hr IV .Q10H [facility] Insulin Human Lispro (Humalog Med) 0 units SC AC [facility] PRN Reason: Protocol Last Admin: 08/09/17 07:59 Dose: Not Given Insulin Human NPH (Humulin N) 10 units SC ACB [facility] Last Admin: 08/09/17 08:00 Dose: Not Given Insulin Human NPH (Humulin N) 10 units SC DAILY@1745 [facility] Last Admin: 08/08/17 17:05 Dose: Not Given Levalbuterol HCl (Xopenex) 0.63 mg IH [id number] [facility] Nicotine (Nicoderm Cq) 1 patch TD DAILY [facility] Last Admin: 08/08/17 13:40 Dose: Not Given Ondansetron HCl (Zofran Inj) 4 mg IVP Q4H PRN PRN Reason: Nausea/Vomiting Pantoprazole Sodium (Protonix Ec Tab) 40 mg PO 0600,1600 [facility] Last Admin: 08/09/17 09:14 Dose: 40 mg Zolpidem Tartrate (Ambien) 5 mg PO HS PRN PRN Reason: Insomnia Last Admin: 08/08/17 20:51 Dose: 5 mg - Labs Labs: 08/09/17 06:30 08/09/17 06:30 PT 12.3 SECONDS (9.4-12.5) 08/07/17 21:17 INR 1.13 (0.93-1.08) H 08/07/17 21:17 APTT 28.5 Seconds (25.1-36.5) 08/07/17 21:17 - Constitutional Appears: Non-toxic, No Acute Distress - Head Exam Head Exam: ATRAUMATIC, NORMOCEPHALIC - Eye Exam Eye Exam: Normal appearance, PERRL. absent: Conjunctival injection, Scleral icterus Pupil Exam: NORMAL ACCOMODATION, PERRL - ENT Exam ENT Exam: Mucous Membranes Moist - Neck Exam Neck Exam: Normal Inspection - Respiratory Exam Respiratory Exam: Clear to Ausculation Bilateral. absent: Accessory Muscle Use , Respiratory Distress - Cardiovascular Exam Cardiovascular Exam: RRR, +S1, +S2. absent: Murmur - GI/Abdominal Exam GI & Abdominal Exam: Soft, Normal Bowel Sounds. absent: Distended, Guarding, Tenderness, Hyperactive Bowel Sounds, Rebound - Extremities Exam Extremities Exam: absent: Calf Tenderness, Pedal Edema - Back Exam Back Exam: NORMAL INSPECTION - Neurological Exam Neurological Exam: Alert, Awake, Oriented x3 - Psychiatric Exam Psychiatric exam: Normal Affect - Skin Skin Exam: Dry, Normal Color, Warm Assessment and Plan - Assessment and Plan (Free Text) Assessment: 57 years old male with hx of CVA, carotid stenosis s/p carotid endarterectomy, HLD, DM2, HTN, psoriasis, admitted for acute inferior wall MO, s/p 2 stents placement in RCA on 08/08/16: STEMI, s/p 2 stents in RCA: - Initial EKG showed HR 115, atrial flutter, acute inferior wall MO with reciprocal anterior wall changes. - CXR showed increased pulmonary vascular markings. - Cardiac cath with Dr Ortez showed mild to moderate LV systolic function. Chronically occluded left circumflex artery. Acute inferior wall MO due to acutely occluded RCA - 2 stents placed. - Reports no cp, sob this AM. - On ASA, BB, Plavix, Statin as per Cardio. - Cardiology on board, f/u recs - Echocardiogram 08/08/16 shows EF 25%. Global hypokinesis, severe inferolateral hypokinesis. Moderate MR. Mild TR. (Pt developing ischemic CM). Previous Echo showed EF 56%. thickened aortic valve cusp. --> Started low dose WAYNE-i ( lisinopril 2.5 mg PO daily) and added Lasix today. - Troponin post cardiac cath elevated at 21, 2/2 likely cardiac intervention. Pt reports no chest pain, sob, diaphoresis, palpitations, n/v/abd pain post cath. - EKG reviewed this AM: HR 96, SR. No new ST changes. - Chest CT shows active pulmonary venous congestion. Mild right and moderate left pleural effusions. Limited bilateral compression atelectasis. Mild mediastinal and left axillary lymphadenopathy. - cont to monitor. Systolic Heart failure and ischemic CM, post MO: - Echocardiogram 08/08/16 shows EF 25%. Global hypokinesis, severe inferolateral hypokinesis. Moderate MR. Mild TR. (Pt developing ischemic CM). Previous Echo showed EF 56%. thickened aortic valve cusp. - On BB. Added WAYNE-i and diuretic therapy. Transaminitis: 2/2 likely med induced (increased dose of lipitor) - Pt on 40 mg lipitor at home. Increased to 80 mg here in hospital. - AST 120 (prev 50), ALT 56 (prev 47). - Consider lowering dose of lipitor. Also will consider hep panel, abd US, AI w/ u. Hx of DM: - will hold home metformin due to risk of LA and renal insufficiency while in this acute setting. - C/w ISS. Humulin 10 units daily. - HHD carb consistent diet. Pt tolerating food yesterday, however decreased intake. Verbalizes good appetite today. Will monitor. - Cont to monitor BS Cocaine/tobacco abuse: - Advised cessation - Nicotine patch - Started prn ativan PPX: Protonix, SCDs Can downgrade to Tele. Will await Cardiology recs. Case discussed with Dr Mahajan. Reanna Thornton, PGY1
[2017-08-09] MEDS: Levalbuterol 0.63 MG/3 ML Inhal Soln UD IH SCH ×2 (10:42→13:12)
--- NOTE | 2017-08-09 11:14 | CP.PCM.PN ---
Subjective - Date & Time of Evaluation Date of Evaluation: 08/09/17 Time of Evaluation: 08:00 - Subjective Subjective: Pt seen and examined, reports no major complaints. Objective - Vital Signs/Intake and Output Vital Signs (last 24 hours): Temp Pulse Resp BP Pulse Ox 98.4 F 89 27 H 90/60 L 81 L 08/09/17 06:00 08/09/17 10:50 08/09/17 10:50 08/09/17 10:30 08/09/17 10:50 Intake and Output: 08/09/17 08/09/17 06:59 18:59 Intake Total 1400 Output Total 0 Balance 1400 - Medications Medications: Current Medications Acetaminophen (Tylenol 325mg Tab) 650 mg PO Q4H PRN PRN Reason: Pain, moderate (4-7) Last Admin: 08/08/17 12:52 Dose: 650 mg Aspirin (Ecotrin) 81 mg PO DAILY [facility] Last Admin: 08/09/17 09:12 Dose: 81 mg Atorvastatin Calcium (Lipitor) 80 mg PO DIN [facility] Last Admin: 08/08/17 17:10 Dose: 80 mg Carvedilol (Coreg) 12.5 mg PO BID [facility] Last Admin: 08/09/17 09:12 Dose: 12.5 mg Clopidogrel Bisulfate (Plavix) 75 mg PO DAILY [facility] Last Admin: 08/09/17 09:12 Dose: 75 mg Docusate Sodium (Colace) 100 mg PO BID [facility] Last Admin: 08/09/17 09:12 Dose: 100 mg Insulin Human Lispro (Humalog Med) 0 units SC AC [facility] PRN Reason: Protocol Last Admin: 08/09/17 07:59 Dose: Not Given Insulin Human NPH (Humulin N) 10 units SC ACB [facility] Last Admin: 08/09/17 08:00 Dose: Not Given Insulin Human NPH (Humulin N) 10 units SC DAILY@1745 [facility] Last Admin: 08/08/17 17:05 Dose: Not Given Levalbuterol HCl (Xopenex) 0.63 mg IH [id number] [facility] Last Admin: 08/09/17 10:42 Dose: Not Given Lisinopril (Zestril) 2.5 mg PO DAILY [facility] Nicotine (Nicoderm Cq) 1 patch TD DAILY [facility] Last Admin: 08/08/17 13:40 Dose: Not Given Ondansetron HCl (Zofran Inj) 4 mg IVP Q4H PRN PRN Reason: Nausea/Vomiting Pantoprazole Sodium (Protonix Ec Tab) 40 mg PO 0600,1600 [facility] Last Admin: 08/09/17 09:14 Dose: 40 mg Zolpidem Tartrate (Ambien) 5 mg PO HS PRN PRN Reason: Insomnia Last Admin: 08/08/17 20:51 Dose: 5 mg - Labs Labs: 08/09/17 06:30 08/09/17 06:30 PT 12.3 SECONDS (9.4-12.5) 08/07/17 21:17 INR 1.13 (0.93-1.08) H 08/07/17 21:17 APTT 28.5 Seconds (25.1-36.5) 08/07/17 21:17 - Constitutional Appears: Well, Non-toxic, No Acute Distress - Head Exam Head Exam: NORMAL INSPECTION - Eye Exam Eye Exam: Normal appearance - ENT Exam ENT Exam: Mucous Membranes Moist - Respiratory Exam Respiratory Exam: Clear to Ausculation Bilateral, NORMAL BREATHING PATTERN - Cardiovascular Exam Cardiovascular Exam: REGULAR RHYTHM, +S1, +S2 - GI/Abdominal Exam GI & Abdominal Exam: Soft, Normal Bowel Sounds - Extremities Exam Extremities Exam: Full ROM, Normal Inspection Assessment and Plan - Assessment and Plan (Free Text) Assessment: 57yo male a/w STEMI s/p MALACHI to RCA HTN HLD DM CAD s/p STEMI s/p PCI Cocaine use - ECHO EF 25% Recommend: - supp o2 as needed - ASA, Plavix, Statin, BB - Check Lipid Panel, HgbA1C - ECHO with EF 25%, consider start WAYNE-I - cardiology follow up - Diabetic diet - GI ppx - DVT ppx - stable transfer to telemetry
--- NOTE | 2017-08-09 11:38 | CT ---
PROCEDURE: CT Chest without contrast HISTORY: ??ILD/ COMPARISON: Chest CT without contrast 10/01/2016. TECHNIQUE: Contiguous axial images were obtained through the chest without intravenous contrast enhancement. Sagittal and coronal reconstructions were performed. Radiation dose (DLP): 374.90 mGy-cm. This CT exam was performed using one or more of the following dose reduction techniques: Automated exposure control, adjustment of the mA and/or kV according to patient size, and/or use of iterative reconstruction technique. FINDINGS: LUNGS: Ground-glass opacities appreciate the perihilar distribution as well dependent lungs. Increased interlobular septal thickening is appreciated. MEDIASTINUM: Unremarkable thoracic aorta. No aneurysm. Cardiomegaly is appreciated with mild expansion of the pulmonary venous volume as compared to paired local airways compatible with pulmonary venous congestion. Extensive coronary artery calcifications are identified. Main pulmonary artery unremarkable. Mild mediastinal lymphadenopathy is appreciate the peritracheal as well as aorta pulmonary window distributions including exit scattered lymph nodes measuring up to 1.3 cm greatest transverse dimension. Mild left axilla lymphadenopathy is also identified. PLEURA: [id number] bilateral pleural effusions are identified greater the left and right sides including within the bilateral major fissures. Trace pericardial effusions identified. No pneumothorax identified bilaterally. BONES: Probable chronic compression fractures T7 through T10 only in though this is not the presenting complaint for this CT examination. Clinically correlate further. T7 and T10 fractures are mild and T8 and T9 fractures are moderate in severity. No destructive bony lesion grossly evident. Kyphotic thoracic spinal deformity results. UPPER ABDOMEN: Grossly unremarkable. OTHER FINDINGS: None. IMPRESSION: 1. Findings most compatible with active pulmonary venous congestion as discussed above. Mild right and moderate left pleural effusions are encounter as well as trace pericardial effusion. Limited bilateral compression atelectasis is appreciated. 2. Mild mediastinal andl eft axillary lymphadenopathy.
--- NOTE | 2017-08-09 15:08 | CARD ---
APPROVED REPORT EKG Measurement Heart [id number] [place] 170P60 [id number] <Conclusion> Normal sinus rhythm Low voltage QRS ST & T wave abnormality, consider anterolateral ischemia Abnormal ECG
--- NOTE | 2017-08-09 15:09 | CARD ---
APPROVED REPORT EKG Measurement Heart [id number] [place] [id number] [id number] <Conclusion> Sinus tachycardia Low voltage QRS Possible Inferior infarct, age undetermined Marked ST abnormality, possible anterior subendocardial injury Abnormal ECG
--- NOTE | 2017-08-09 15:11 | PN ---
DATE: 08/09/2017 SUBJECTIVE: The patient is seen out of bed to chair in ICU bed seven. The patient is awake and responsive. The patient is complaining of some coughing. Denies chest pain and denies shortness of breath. Denies hemoptysis. According to the nurses' note, the patient was found to be anxious. He takes cocaine him for withdrawal. REVIEW OF SYSTEMS: A 13 system review was done, pertinent positive and negative dictated above. PHYSICAL EXAMINATION: VITAL SIGNS: T-max of 99.4. Telemetry shows sinus rhythm, heart rate in 90s and low 100s. Blood pressure ranging from 109/76, 124/82, 123/61 and 108/63 to 110/69. Respirations of 27, 29, 41 and 34 per minute and O2 saturation of 81%, 90%, 68%, 66%, 74% and 70%. INTAKE AND OUTPUT: Intake 1280 and output 350. HEENT: Head examination normocephalic, atraumatic. HEENT examination shows pink conjunctivae. Anicteric sclerae. No oropharyngeal lesion. NECK: No neck rigidity. Positive left carotid endarterectomy surgical scar noted. CHEST: Examination reveals kyphosis. Lung examination shows occasional rhonchi. CARDIOVASCULAR: Examination reveals S1 and S2, regular rhythm. Questionable soft systolic murmur left sternal border, left second intercostal space and right second intercostal space. GASTROINTESTINAL: Abdomen is soft. Positive bowel sound. GENITALIA: Male. RECTAL: Examination is deferred. EXTREMITIES: Shows no pitting edema, no calf tenderness , and no Homans' sign. NEUROLOGIC: The patient is alert, awake, and oriented x3. Motor strength is 5/5 in the upper and lower extremity. Gait examination is not tested. Cranial nerves II through XII intact. MUSCULOSKELETAL: Examination shows body mass index of 25. VASCULAR: Examination reveals palpable pulses. DIAGNOSTIC DATA: On 08/09/2017,WBC of 9.9, hemoglobin and hematocrit of 11.9 and 35.9, and platelets of 190. Sodium of 137, potassium 3.9, chloride of 105, CO2 of 24, anion gap of 13, BUN of 14, and creatinine of 0.7. GFR greater than 60. Glucose of 117, 143, 144, 134 and 182, calcium of 8.7, and magnesium of 1.9. Direct bilirubin of 0.6, AST of 120 and ALT of 56. Troponin is 21. Rest of the LFTs are within normal limits. The patient had a CT of the chest done which was reviewed. Echocardiogram was done, the results of which were reviewed. IMPRESSION AND PLAN: 1. Status post code heart. 2. Acute inferior wall ST-elevation myocardial infarction status post angioplasty and stent placement of the right coronary artery. 3. Tachycardia. 4. Transient hypotension. 5. Tachypnea. 6. Hypoxemia. 7. Leukocytosis with granulocytosis. 8. Normocytic anemia. 9. Uncontrolled diabetes mellitus with hyperglycemia and hemoglobin A1c of 10.8. 10. Acute ST-elevation myocardial infarction with elevated troponin and a peak troponin of 21. 11. Proteinuria, glycosuria, and bacteriuria 12. Active to cocaine abuse and dependence with drug screen positive for cocaine. 13. Probable ischemic versus nonischemic cardiomyopathy with left ventricle ejection fraction of 26%. 14. Pulmonary hypertension with elevated right ventricular systolic pressure of 44 mmHg. 15. Moderate to severely impaired left ventricle systolic function with moderate global hypokinesis with severe inferolateral hypokinesis. 16. Mildly sclerotic aortic valve. 17. Moderate mitral regurgitation. 18. Mild tricuspid regurgitation. 19. Moderate to severely reduced left ventricular systolic function with global hypokinesis and severe inferolateral hypokinesis. 20. Moderate mitral regurgitation. 21. Mild tricuspid regurgitation. 22. Bilateral ground-glass opacities with perihilar distribution and increased intralobular septal thickening. 23. Cardiomegaly 24. Pulmonary vascular congestion. 25. Mild mediastinal lymphadenopathy. 26. Mild left axillary lymphadenopathy. 27. Moderate bilateral pleural effusions, left more than the right. 28. Probable chronic compression fracture T7 through T10. 29. Thoracic kyphosis. 30. Pulmonary vascular congestion with moderate bilateral pleural effusion, left more than the right. 31. Bilateral compression atelectasis. 32. Mild mediastinal and left axillary lymphadenopathy. 33. Anterolateral coronary ischemic changes. PLAN: At this time, the patient has been ordered serial labs. The patient will be started on some p.r.n. Ativan for possible cocaine withdrawal. The patient is currently on Ambien 5 mg at bedtime p.r.n., Ativan started at 0.5 IV q. 6 hours. p.r.n., Colace 100 mg twice a day, Coreg 12.5 twice a day, aspirin 81 mg daily, Humalog medium dose sliding scale coverage. and NPH 10 units with breakfast and 10 units with supper. The patient is also on Lipitor 80 mg daily, nicotine patch 21 mg daily, Plavix 75 mg daily, Protonix 40 mg twice a day, Tylenol 650 q. 4 hours. p.r.n., Xopenex 0.63 mg every 6 hours p.r.n., Zestril 2.5 mg daily, and Zofran 4 mg IV q. 4 hours. p.r.n. The patient is on oxygen 2 liters continuous. Repeat EKG ordered.. The patient has been ordered out of bed. The patient will be considered to be started on low-dose low-dose diuretics. The patient is started on low-dose WAYNE inhibitor 2.5 mg daily. Serial labs ordered. The patient is awaiting Cardiology evaluation and clearance for transfer out of ICU. The patient has been counseled about cessation of smoking and cocaine use. The patient's overall prognosis at this time is guarded to poor because of the patient's multiple comorbidity and decompensated state. Time spent in the management more than 35 minutes. Dictated and electronically signed, not read. Signing off Marc Mahajan MD Marc Mahajan MD
[2017-08-09] MEDS ORDERED: Ergocalciferol 50,000 Intl Units Cap PO SCH (18:30)
--- NOTE | 2017-08-10 00:43 | PN ---
DATE: 08/09/2017 SUBJECTIVE: The patient was seen sitting in a chair in the CCU. He is currently comfortable. He denies any chest pain or dyspnea. Followup troponin is 21.0. CURRENT MEDICATIONS: Include carvedilol 12.5 mg b.i.d., Ecotrin, Lasix 20 mg IV b.i.d., insulin, Lipitor 80 mg daily, Nicoderm patch, Plavix 75 mg daily, Protonix, Zestril 2.5 mg daily. OBJECTIVE: GENERAL: He is a middle-aged man, who appears comfortable at the present time. VITAL SIGNS: His blood pressure is 110/70 with a pulse of 90, respirations are 16. He is afebrile. HEENT: No JVD. CHEST: Few scattered rhonchi heard. HEART: PMI displaced laterally with soft tones noted. ABDOMEN: Soft and nontender. Normoactive bowel sounds. EXTREMITIES: No edema. DIAGNOSTIC DATA: Potassium 3.9. BUN and creatinine of 14 and 0.7. Troponin 21.0. White count 9.9, hemoglobin and hematocrit of 11.9 and 35.9 with a platelet count 190,000. Toxicology screen was positive for cocaine. Echocardiogram revealed normal chamber size with [id number] reduced LV systolic function with severe inferolateral hypokinesis and global hypokinesis of other wall segments. Moderate mitral regurgitation was noted as well. IMPRESSION: 1. Recent acute inferior wall myocardial infarction treated with percutaneous coronary intervention of right coronary artery with drug-eluting stents. 2. Chronically occluded left circumflex artery. 3. Apparent cocaine abuse. 4. History of hypertension and diabetes. 5. History of tobacco abuse. 6. Carotid disease, status post prior carotid endarterectomy. 7. Moderate mitral regurgitation. 8. Moderately severe left ventricular systolic dysfunction. RECOMMENDATIONS: His current medications should continue for now. WAYNE inhibitor and beta-edne therapy will be increased as tolerated. Diuretic therapy should be continued as well. Smoking abstinence should continue as well as avoidance of drug use. Transfer to telemetry and gradual ambulation is advised. Followup assessment of his left ventricular function in 3 months will be planned and if his ejection fraction remains below 35%, prophylactic ICD should be advised. We will continue to follow and make further recommendations as appropriate. Joe Ortez MD [facility] # [phone]
[2017-08-10] MEDS: Pantoprazole 40 mg EC Tab PO SCH ×2 (05:13→17:11)
[2017-08-10 06:31] LABS: HEMOGLOBIN 10.8 g/dL (14.0-18.0); MEAN CELL VOLUME 84.7 fl (80.0-105.0); MEAN CORPUSCULAR HEMOGLOBIN 27.6 pg (25.0-35.0); MEAN CORPUSCULAR HGB CONC 32.5 g/dl (31.0-37.0); MEAN PLATELET VOLUME 10.6 fl (7.0-11.0); RBC 3.92 10^6/uL (3.5-6.1); RED CELL DISTRIBUTION WIDTH 13.7 % (11.5-14.5); WHITE BLOOD COUNT 9.8 10^3/ul (4.5-11.0)
[2017-08-10 07:45] LABS: ALB/GLOB RATIO 1.2 (1.1-1.8); ALBUMIN 3.3 g/dL (3.0-4.8); ALT/SGPT 48 U/L (7-56); AST/SGOT 53 U/L (17-59); BILIRUBIN,DIRECT 0.5 mg/dL (0.0-0.4); BLOOD UREA NITROGEN 19 mg/dL (7-21); CALCIUM 8.5 mg/dL (8.4-10.5); GFR AFRICAN-AMERICAN > 60; GFR NON-AFRICAN AMERICAN > 60; MAGNESIUM 1.8 mg/dL (1.7-2.2)
[2017-08-10] MEDS: Levalbuterol 0.63 MG/3 ML Inhal Soln UD IH SCH ×4 (08:17→20:37)
[2017-08-10] MEDS: Insulin Human NPH 1 UNITS/0.01 ML SC SCH (09:04)
[2017-08-10] MEDS: Insulin Lispro (humaLOG) MEDIUM Coverage SC SCH ×3 (09:05→17:11)
--- NOTE | 2017-08-10 12:21 | CARD ---
APPROVED REPORT EKG Measurement Heart [id number] <Conclusion> Normal sinus rhythm Low voltage QRS Cannot rule out Anterior infarct, age undetermined ST & T wave abnormality, consider lateral ischemia Abnormal ECG
--- NOTE | 2017-08-10 12:55 | PN ---
DATE: 08/10/2017 SUBJECTIVE: The patient is seen lying in bed on Telemetry. He is currently comfortable. He denies any chest pain or dyspnea. CURRENT MEDICATIONS: Remain Ativan p.r.n., carvedilol 12.5 mg b.i.d., Ecotrin once daily, insulin coverage subcutaneous insulin, Lasix 20 mg IV b.i.d., Lipitor 80 mg daily, Nicoderm patch, Plavix 75 mg daily, Protonix 40 mg daily, Zestril 2.5 mg daily. OBJECTIVE: GENERAL: He is a middle-aged male, who appears comfortable at the present time. VITAL SIGNS: His blood pressure is 104/60 with a pulse of 90, respirations are 16. He is currently afebrile. HEENT: No JVD. CHEST: Diminished breath sounds at bases. HEART: PMI displaced laterally with soft tones noted. ABDOMEN: Soft and nontender with normoactive bowel sounds. EXTREMITIES: No edema. DIAGNOSTIC DATA: Troponin is 8.7. Potassium 3.9. BUN and creatinine are 19 and 0.7. White count is 9.8, hemoglobin and hematocrit are 10.8 and 33.2 with a platelet count 215,000. IMPRESSION: 1. Recent inferior wall myocardial infarction treated with emergent PCI using drug-eluting stents. 2. Chronic left circumflex artery occlusion. 3. Moderately severe left ventricular systolic dysfunction. 4. History of tobacco abuse. 5. Carotid disease, status post prior carotid endarterectomy. 6. Moderate mitral regurgitation. 7. History of hypertension and diabetes. 8. Probable cocaine use. RECOMMENDATIONS: At this time, his current medications should be continued. A beta-eden and WAYNE inhibitor dose will be increased as tolerated. Lasix will be switched to once daily dosing and eventually switched to oral administration. Discharge home within the next several days is advised. A followup chest x-ray will be planned. Close outpatient monitoring will be necessary. If his ejection fraction remains below 35% after 3 months, prophylactic ICD will be discussed. We will continue to follow and make further recommendations as appropriate. Joe Ortez MD [facility]
--- NOTE | 2017-08-10 13:25 | RAD ---
HISTORY: F/U CHF, post RI COMPARISON: 08/07/2017 TECHNIQUE: Chest PA and lateral FINDINGS: LUNGS: There is mild vascular and interstitial congestion. There is slight improvement. There are new bilateral small pleural effusions PLEURA: As above CARDIOVASCULAR: Normal. OSSEOUS STRUCTURES: No significant abnormalities. VISUALIZED UPPER ABDOMEN: Normal. OTHER FINDINGS: None. IMPRESSION: New small bilateral pleural effusions. Mild vascular and interstitial congestion showing slight improved
--- NOTE | 2017-08-10 13:40 | CP.PCM.PN ---
Subjective - Date & Time of Evaluation Date of Evaluation: 08/10/17 Time of Evaluation: 13:27 - Subjective Subjective: Reanna Thornton, PGY1, Medicine Progress Note for Dr Mahajan: Patient seen and examined at bedside. No acute events overnight. Pt ambulating well with PT. Pt tolerating PO food well and had BM today. Denies cp, sob, diaphoresis, palpitations, nausea/vomiting, fever, chills, headache, urinary complaints. Objective - Vital Signs/Intake and Output Vital Signs (last 24 hours): Temp Pulse Resp BP Pulse Ox 97.6 F 100 H 20 122/51 L 93 L 08/10/17 06:00 08/10/17 12:00 08/10/17 12:00 08/10/17 12:00 08/10/17 06:00 Intake and Output: 08/10/17 08/10/17 06:59 18:59 Intake Total 120 Output Total 0 Balance 120 - Medications Medications: Current Medications Acetaminophen (Tylenol 325mg Tab) 650 mg PO Q4H PRN PRN Reason: Pain, moderate (4-7) Last Admin: 08/08/17 12:52 Dose: 650 mg Aspirin (Ecotrin) 81 mg PO DAILY [facility] Last Admin: 08/10/17 09:13 Dose: 81 mg Atorvastatin Calcium (Lipitor) 80 mg PO DIN [facility] Last Admin: 08/09/17 16:47 Dose: 80 mg Carvedilol (Coreg) 12.5 mg PO BID [facility] Clopidogrel Bisulfate (Plavix) 75 mg PO DAILY [facility] Last Admin: 08/10/17 09:13 Dose: 75 mg Docusate Sodium (Colace) 100 mg PO BID [facility] Last Admin: 08/10/17 09:13 Dose: 100 mg Ergocalciferol (Drisdol 50,000 Intl Units Cap) 1 cap PO Q7D [facility] Last Admin: 08/09/17 19:22 Dose: 1 cap Furosemide (Lasix) 40 mg IVP DAILY [facility] Insulin Human Lispro (Humalog Med) 0 units SC AC [facility] PRN Reason: Protocol Last Admin: 08/10/17 12:15 Dose: 3 units Insulin Human NPH (Humulin N) 10 units SC ACB [facility] Last Admin: 08/10/17 09:04 Dose: 10 units Insulin Human NPH (Humulin N) 10 units SC DAILY@1745 [facility] Last Admin: 08/09/17 16:44 Dose: Not Given Levalbuterol HCl (Xopenex) 0.63 mg IH [id number] [facility] Last Admin: 08/10/17 08:17 Dose: Not Given Lisinopril (Zestril) 5 mg PO DAILY [facility] Lorazepam (Ativan) 0.5 mg IVP Q6H PRN; Protocol PRN Reason: Anxiety Nicotine (Nicoderm Cq) 1 patch TD DAILY [facility] Last Admin: 08/10/17 09:12 Dose: Not Given Ondansetron HCl (Zofran Inj) 4 mg IVP Q4H PRN PRN Reason: Nausea/Vomiting Pantoprazole Sodium (Protonix Ec Tab) 40 mg PO 0600,1600 [facility] Last Admin: 08/10/17 05:13 Dose: 40 mg Zolpidem Tartrate (Ambien) 5 mg PO HS PRN PRN Reason: Insomnia Last Admin: 08/09/17 23:48 Dose: 5 mg - Labs Labs: 08/10/17 05:30 08/10/17 05:30 PT 12.3 SECONDS (9.4-12.5) 08/07/17 21:17 INR 1.13 (0.93-1.08) H 08/07/17 21:17 APTT 28.5 Seconds (25.1-36.5) 08/07/17 21:17 - Additional Findings Additional findings: - Constitutional Appears: Non-toxic, No Acute Distress - Head Exam Head Exam: ATRAUMATIC, NORMOCEPHALIC - Eye Exam Eye Exam: Normal appearance, PERRL. absent: Conjunctival injection, Scleral icterus Pupil Exam: NORMAL ACCOMODATION, PERRL - ENT Exam ENT Exam: Mucous Membranes Moist - Neck Exam Neck Exam: Normal Inspection - Respiratory Exam Respiratory Exam: Clear to Ausculation Bilateral. absent: Accessory Muscle Use , Respiratory Distress - Cardiovascular Exam Cardiovascular Exam: RRR, +S1, +S2. absent: Murmur - GI/Abdominal Exam GI & Abdominal Exam: Soft, Normal Bowel Sounds. absent: Distended, Guarding, Tenderness, Hyperactive Bowel Sounds, Rebound - Extremities Exam Extremities Exam: absent: Calf Tenderness, Pedal Edema - Back Exam Back Exam: NORMAL INSPECTION - Neurological Exam Neurological Exam: Alert, Awake, Oriented x3 - Psychiatric Exam Psychiatric exam: Normal Affect - Skin Skin Exam: Dry, Normal Color, Warm Assessment and Plan - Assessment and Plan (Free Text) Assessment: 57 years old male with hx of CVA, carotid stenosis s/p carotid endarterectomy, HLD, DM2, HTN, psoriasis, admitted for acute inferior wall AR, s/p 2 stents placement in RCA on 08/08/16: STEMI, s/p 2 stents in RCA: - Initial EKG showed HR 115, atrial flutter, acute inferior wall AR with reciprocal anterior wall changes. - CXR showed increased pulmonary vascular markings. - Cardiac cath with Dr Ortez showed mild to moderate LV systolic function. Chronically occluded left circumflex artery. Acute inferior wall AR due to acutely occluded RCA - 2 stents placed. - Reports no cp, sob this AM. - On ASA, BB, Plavix, Statin as per Cardio. - Cardiology on board, f/u recs. - Echocardiogram 08/08/16 shows EF 25%. Global hypokinesis, severe inferolateral hypokinesis. Moderate MR. Mild TR. (Pt developing ischemic CM). Previous Echo showed EF 56%. thickened aortic valve cusp. - Troponin post cardiac cath elevated at 21->8.7, 2/2 likely cardiac intervention. Pt reports no chest pain, sob, diaphoresis, palpitations, n/v/abd pain post cath. - EKG reviewed this AM. No new ST changes. - Chest CT shows active pulmonary venous congestion. Mild right and moderate left pleural effusions. Limited bilateral compression atelectasis. Mild mediastinal and left axillary lymphadenopathy. - Tele monitoring - cont to monitor. Systolic Heart failure and ischemic CM, post AR: - Echocardiogram 08/08/16 shows EF 25%. Global hypokinesis, severe inferolateral hypokinesis. Moderate MR. Mild TR. (Pt developing ischemic CM). Previous Echo showed EF 56%. thickened aortic valve cusp. - Cardio on board. appreciate recs. Will f/u EF in 3 months. If <35% with medical management in 3 months, Cardio will consider prophylactic ICD. -C/w carvedilol 12.5 bid. Increased Lisinopril 5 mg Po daily and Lasix 40 IV daily per Cardio. Transaminitis: 2/2 likely med induced (increased dose of lipitor) - Pt on 40 mg lipitor at home. Increased to 80 mg here in hospital. - AST 120 (prev 50), ALT 56 (prev 47). - Consider lowering dose of lipitor. Also will consider hep panel, abd US, AI w/ u. Hx of DM: - will hold home metformin due to risk of LA and renal insufficiency while in this acute setting. - C/w ISS. Humulin 10 units daily. - HHD carb consistent diet. Pt tolerating food well. - Cont to monitor BS Cocaine/tobacco abuse: - Advised cessation - Nicotine patch - PRN ativan PPX: Protonix, SCDs Dispo: PT recommends discharge home. Pt lives at home with and family. Case discussed with Dr Mahajan. Reanna Thornton, PGY1
--- NOTE | 2017-08-10 18:44 | PN ---
DATE: 08/10/2017 LOCATION: Patient is seen in room 376, bed 1. SUBJECTIVE: Patient was seen lying in the bed. Patient is awake, responsive. Patient denies any chest pain. Denies any nausea, vomiting, diarrhea or constipation. Denies any shortness of breath. Denies any hemoptysis, hematemesis, melena. Overnight nurse's notes were reviewed. OBJECTIVE: VITAL SIGNS: T-max is 98.2. Telemetry shows sinus rhythm, sinus tachycardia, heart rate in high 90s and low 100s. Blood pressure 122/51, 111/68, 128/79. Yesterday's last blood pressure 86/70, respirations 18, O2 sat is 93-92%. HEENT: Head examination; normocephalic, atraumatic. HEENT examination shows pink conjunctivae. Anicteric sclerae. No oropharyngeal lesion. NECK: No neck rigidity. Positive carotid endarterectomy surgical scar noted. No jugular venous distention. CHEST: Kyphosis. Positive carotid bruit noted. LUNGS: Shows positive rhonchi bilaterally, upper lung goddard. CARDIOVASCULAR: S1, S2, regular rhythm. Questionable soft systolic murmur, left sternal border, left second intercostal space, right second intercostal space. ABDOMEN: Soft. Positive bowel sounds. No hepatosplenomegaly noted. No guarding. No rigidity. No rebound tenderness. GENITALIA: Male. RECTAL: Deferred. EXTREMITIES: Shows no pitting edema, no calf tenderness, no Homans' sign. No clubbing. No cyanosis. MUSCULOSKELETAL: Shows a body mass index of 25. NEUROLOGIC: Cranial nerves II-XII intact. The patient is alert, awake and oriented x3. No asterixis noted. DIAGNOSTICS: On 08/10; WBC 9.8, hemoglobin/hematocrit 10.8/33.2, platelet is 215. Sodium 134, potassium 3.9, chloride 100, CO2 of 23, anion gap 14, BUN 19, creatinine 0.7, GFR greater than 60, glucose 180. Fingerstick blood sugar 224, 186. Calcium 8.5, magnesium 1.8, direct bili 0.5, alk phos 139. Troponin is down to 8.7 from 21. Rest of the LFTs are normal. MRSA screen none detected. Blood type A+. The patient's repeat chest x-ray was done today which shows mild vascular interstitial congestion improvement with bilateral small pleural effusion. Patient's repeat EKG was done today which shows sinus rhythm with T-wave inversion in II, III, aVF and ST depression. EKG also showed lateral ischemia. Patient seen by cardiology, Dr. Ortez and recommendation noted. The patient was advised repeat echo in 3 months and if his ejection fraction stays below 35, prophylactic ICD was also explained and discussed with the patient. IMPRESSION AND PLAN: 1. Status post Code Heart. 2. Acute ST-elevation inferior wall myocardial infarction, status post angioplasty and stent placement. 3. Chronic left circumflex artery occlusion. 4. Tachycardia. 5. Hypotension. 6. Hypoxemia. 7. Leukocytosis with granulocytosis. 8. Normocytic anemia. 9. Hypovitaminosis D. 10. Transient transaminitis. 11. Uncontrolled diabetes mellitus with hyperglycemia and hemoglobin A1c of 10.8. 12. A positive blood type. 13. Improving vascular interstitial congestion with bilateral small pleural effusion. 14. Acute ST-elevation inferior wall myocardial infarction with anterior infarct and lateral ischemic changes. 15. History of polysubstance abuse and cocaine abuse. Questionable and possible history of nicotine, alcohol and polysubstance abuse. 16. Insomnia. 17. Questionable polysubstance withdrawal. 18. Insulin-requiring diabetes mellitus. 19. Dyslipidemia. 20. History of cerebral infarct with carotid stenosis, status post carotid endarterectomy. 21. History of poor compliance and noncompliance. Plan at this time, the patient was seen by Cardiology. Patient's medications were revised. Patient is on Ambien 5 mg h.s. p.r.n., Ativan 0.5 mg IV q.6 p.r.n., Colace 100 mg twice a day, Coreg 12.5 twice a day, Drisdol 50,000 weekly, Ecotrin 81 mg daily, Humalog medium dose sliding scale coverage a.c. and h.s., NPH 10 units with breakfast and 10 units with dinner, Lasix 40 mg IV daily started by Dr. Ortez, Lipitor 80 mg daily, nicotine patch 21 mg daily, Plavix 75 mg daily, Protonix 40 mg daily, Tylenol 650 q.4 p.r.n., Xopenex nebulizer every 6 hours round the clock, Zestril 5 mg daily which was increased yesterday, Zofran 4 mg IV q.4 p.r.n., oxygen 2 liters continuous. Repeat EKG ordered. Heart-healthy diet, out of bed. Physical therapy ordered. The patient was counseled about cessation of smoking, drugs and other recreational drugs. The patient was advised close outpatient followup. The patient was advised repeat echocardiogram in 3 months. The patient was also explained about possible need for a prophylactic AICD if heart function does not improve. All of the above was explained to the patient at length and all questions concerned. Patient was extensively explained about all of those which he acknowledged and understood. The patient agreed to comply with the above recommendation. Dictated and electronically signed, not read. Marc Mahajan MD
[2017-08-11 00:19] VITALS: TEMP 98.5
[2017-08-11] MEDS: Levalbuterol 0.63 MG/3 ML Inhal Soln UD IH SCH ×3 (02:25→14:10)
[2017-08-11] MEDS: Pantoprazole 40 mg EC Tab PO SCH (05:26)
[2017-08-11 06:01] VITALS: PULSE 94; RESP 19; O2SAT 98
[2017-08-11 07:49] LABS: ALB/GLOB RATIO 1.2 (1.1-1.8); ALBUMIN 3.2 g/dL (3.0-4.8); ALT/SGPT 42 U/L (7-56); AST/SGOT 30 U/L (17-59); BILIRUBIN,DIRECT 0.5 mg/dL (0.0-0.4); BLOOD UREA NITROGEN 17 mg/dL (7-21); CALCIUM 8.6 mg/dL (8.4-10.5); GFR AFRICAN-AMERICAN > 60; GFR NON-AFRICAN AMERICAN > 60; MAGNESIUM 1.8 mg/dL (1.7-2.2)
[2017-08-11 08:00] LABS: BASO # 0.02 K/mm3 (0.0-2.0); BASO % 0.3 % (0.0-3.0); EOS # 0.2 (0.0-0.7); EOS % 2.4 % (1.5-5.0); GRAN # 5.67 (1.4-6.5); GRAN % 72.1 % (50.0-68.0); HEMOGLOBIN 10.5 g/dL (14.0-18.0); LYMPH # 1.1 (1.2-3.4); LYMPH % 14.4 % (22.0-35.0); MEAN CELL VOLUME 84.2 fl (80.0-105.0); MEAN CORPUSCULAR HEMOGLOBIN 27.3 pg (25.0-35.0); MEAN CORPUSCULAR HGB CONC 32.4 g/dl (31.0-37.0); MEAN PLATELET VOLUME 10.6 fl (7.0-11.0); MONO # 0.9 (0.1-0.6); MONO % 10.8 % (1.0-6.0); RBC 3.85 10^6/uL (3.5-6.1); RED CELL DISTRIBUTION WIDTH 13.6 % (11.5-14.5); WHITE BLOOD COUNT 7.9 10^3/ul (4.5-11.0)
[2017-08-11] MEDS ORDERED: Potassium Chloride 40 mEq/30 ml LIQ UD PO ONE (08:29)
--- NOTE | 2017-08-11 09:56 | CARD ---
APPROVED REPORT EKG Measurement Heart [id number] <Conclusion> Normal sinus rhythm Low voltage QRS ST & T wave abnormality, consider lateral ischemia Prolonged QT Abnormal ECG
--- NOTE | 2017-08-11 10:17 | CP.PCM.DIS ---
Provider - Provider Date of Admission: 08/07/17 22:03 Attending physician: Marc Mahajan MD Primary care physician: Marc Mahajan MD Consults: Cardio [place] Time Spent in preparation of Discharge (in minutes): 35 Diagnosis - Discharge Diagnosis (1) Heart failure Status: Acute (2) STEMI (ST elevation myocardial infarction) Status: Acute Hospital Course - Lab Results Lab Results: Micro Results 08/07/17 23:15 Naris MRSA Culture (Admit) - Final MRSA NOT DETECTED Most Recent Lab Values WBC 7.9 10^3/ul (4.5-11.0) 08/11/17 05:30 RBC 3.85 10^6/uL (3.5-6.1) 08/11/17 05:30 Hgb 10.5 g/dL (14.0-18.0) L 08/11/17 05:30 Hct 32.4 % (42.0-52.0) L 08/11/17 05:30 MCV 84.2 fl (80.0-105.0) 08/11/17 05:30 MCH 27.3 pg (25.0-35.0) 08/11/17 05:30 MCHC 32.4 g/dl (31.0-37.0) 08/11/17 05:30 RDW 13.6 % (11.5-14.5) 08/11/17 05:30 Plt Count 242 10^3/uL (120.0-450.0) 08/11/17 05:30 MPV 10.6 fl (7.0-11.0) 08/11/17 05:30 Gran % 72.1 % (50.0-68.0) H 08/11/17 05:30 Lymph % (Auto) 14.4 % (22.0-35.0) L 08/11/17 05:30 [place] % (Auto) 10.8 % (1.0-6.0) H 08/11/17 05:30 Eos % (Auto) 2.4 % (1.5-5.0) 08/11/17 05:30 Baso % (Auto) 0.3 % (0.0-3.0) 08/11/17 05:30 Gran # 5.67 (1.4-6.5) 08/11/17 05:30 Lymph # 1.1 (1.2-3.4) L 08/11/17 05:30 [place] # 0.9 (0.1-0.6) H 08/11/17 05:30 Eos # 0.2 (0.0-0.7) 08/11/17 05:30 Baso # 0.02 K/mm3 (0.0-2.0) 08/11/17 05:30 PT 12.3 SECONDS (9.4-12.5) 08/07/17 21:17 INR 1.13 (0.93-1.08) H 08/07/17 21:17 APTT 28.5 Seconds (25.1-36.5) 08/07/17 21:17 Sodium 136 mmol/L (132-148) 08/11/17 06:00 Potassium 3.5 mmol/L (3.6-5.0) L 08/11/17 06:00 Chloride 100 mmol/L (98-107) 08/11/17 06:00 Carbon Dioxide 26 mmol/L (21-33) 08/11/17 06:00 Anion Gap 13 (10-20) 08/11/17 06:00 BUN 17 mg/dL (7-21) 08/11/17 06:00 Creatinine 0.8 mg/dl (0.8-1.5) 08/11/17 06:00 Est GFR ( Amer) > 60 08/11/17 06:00 Est GFR (Non-Af Amer) > 60 08/11/17 06:00 POC Glucose (mg/dL) 166 mg/dL (65-110) H 08/11/17 08:12 Random Glucose 166 mg/dL (70-110) H 08/11/17 06:00 Hemoglobin A1c 10.8 % (4.2-6.5) H 08/08/17 06:50 Uric Acid 3.6 mg/dL (3.5-8.5) 08/08/17 08:20 Calcium 8.6 mg/dL (8.4-10.5) 08/11/17 06:00 Phosphorus 3.1 mg/dL (2.5-4.5) 08/08/17 08:20 Magnesium 1.8 mg/dL (1.7-2.2) 08/11/17 06:00 Total Bilirubin 0.6 mg/dL (0.2-1.3) 08/11/17 06:00 Direct Bilirubin 0.5 mg/dL (0.0-0.4) H 08/11/17 06:00 AST 30 U/L (17-59) 08/11/17 06:00 ALT 42 U/L (7-56) 08/11/17 06:00 Alkaline Phosphatase 149 U/L (38-126) H 08/11/17 06:00 Lactate Dehydrogenase 714 U/L (333-699) H 08/07/17 21:17 Total Creatine Kinase 81 U/L (35-230) 08/07/17 21:17 Troponin I 8.70 ng/mL H* D 08/10/17 05:30 Total Protein 6.0 g/dL (5.8-8.3) 08/11/17 06:00 Albumin 3.2 g/dL (3.0-4.8) 08/11/17 06:00 Globulin 2.8 gm/dL 08/11/17 06:00 Albumin/Globulin Ratio 1.2 (1.1-1.8) 08/11/17 06:00 Triglycerides 147 mg/dL (35-160) 08/08/17 08:20 Cholesterol 135 mg/dL (130-200) 08/08/17 08:20 LDL Cholesterol Direct < 30 mg/dL (0-129) 08/08/17 08:20 HDL Cholesterol 52 mg/dL (29-60) 08/08/17 08:20 25-OH Vitamin D Total 16.4 NG/ML (30.0-100.0) L 08/09/17 06:30 Free T4 0.98 ng/dL (0.78-2.19) 08/08/17 08:20 Thyroxine (T4) 6.0 ug/dL (5.5-11.0) 08/08/17 08:20 TSH 3rd Generation 1.05 mIU/mL (0.46-4.68) 08/08/17 08:20 Urine Color Yellow (YELLOW) 08/08/17 08:00 Urine Appearance Clear (CLEAR) 08/08/17 08:00 Urine pH 5.5 (4.7-8.0) 08/08/17 08:00 Ur Specific [place] 1.015 (1.005-1.035) 08/08/17 08:00 Urine Protein Trace mg/dL (<30 mg/dL) H 08/08/17 08:00 Urine Glucose (UA) 500 mg/dL (NEGATIVE) H 08/08/17 08:00 Urine Ketones 15 mg/dL (NEGATIVE) H 08/08/17 08:00 Urine Blood Negative (NEGATIVE) 08/08/17 08:00 Urine Nitrate Negative (NEGATIVE) 08/08/17 08:00 Urine Bilirubin Negative (NEGATIVE) 08/08/17 08:00 Urine Urobilinogen 1.0 E.U./dL (<1 E.U./dL) H 08/08/17 08:00 Ur Leukocyte Esterase Negative Marcia/uL (NEGATIVE) 08/08/17 08:00 Urine RBC Negative /hpf (0-2) 08/08/17 08:00 Urine WBC 0 - 2 /hpf (0-6) 08/08/17 08:00 Urine Bacteria Trace (NEG) 08/08/17 08:00 Urine Opiates Screen Negative (NEGATIVE) 08/08/17 08:00 Urine Methadone Screen Negative (NEGATIVE) 08/08/17 08:00 Ur Barbiturates Screen Negative (NEGATIVE) 08/08/17 08:00 Ur Phencyclidine Scrn Negative (NEGATIVE) 08/08/17 08:00 Ur Amphetamines Screen Negative (NEGATIVE) 08/08/17 08:00 U Benzodiazepines Scrn Positive (NEGATIVE) 08/08/17 08:00 U Oth Cocaine Metabols Positive (NEGATIVE) H 08/08/17 08:00 U Cannabinoids Screen Negative (NEGATIVE) 08/08/17 08:00 Blood Type A POSITIVE 08/08/17 06:50 Antibody Screen Negative 08/08/17 06:50 BBK History Checked Patient has bt 08/08/17 06:50 - Hospital Course Hospital Course: 57 years old male, whose past medical history includes Type 2 diabetes, hypertension, hyperlipidemia, TIA, carotid stenosis s/p carotid endarterectomy, and psoriasis, who presents for chest pain. Pt was transferred from [facility] [place] for possible STEMI tonight. As per [facility] [place], patient with EKG changes inferiorly, reciprocally anteriorly. Patient was administered aspirin and Plavix prior to transfer. states patient has been experiencing chest pain since yesterday and notes associated shortness of breath today which prompted patient's visit to ER. Patient denies abdominal pain , nausea, vomiting, diarrhea, or back pain. Pt was evaluated by Dr Lazaro, and he placed 2 cardiac stents in RCA (mid and distal RCA stents). Echocardiogram showed EF 25%, global hypokinesis, severe inferolateral hypokinesis. Moderate MR /Mild TR. Patient was started WAYNE-i, BB, ASA, Plavix, and Lasix. Patient to follow up with Dr Mahajan in 1 week after discharge. Patient will be medically optimized with his CHF therapy. Per Dr Ortez, echocardiogram will be repeated in 3 months, to measure his EF. If it remains <35%, will determine AICD placement. Discussed with Dr Mahajan. Discharge Exam - Additional Findings Additional findings: - Constitutional Appears: Non-toxic, No Acute Distress - Head Exam Head Exam: ATRAUMATIC, NORMOCEPHALIC - Eye Exam Eye Exam: Normal appearance, PERRL. absent: Conjunctival injection, Scleral icterus Pupil Exam: NORMAL ACCOMODATION, PERRL - ENT Exam ENT Exam: Mucous Membranes Moist - Neck Exam Neck Exam: Normal Inspection - Respiratory Exam Respiratory Exam: Clear to Ausculation Bilateral. absent: Accessory Muscle Use , Respiratory Distress - Cardiovascular Exam Cardiovascular Exam: RRR, +S1, +S2. absent: Murmur - GI/Abdominal Exam GI & Abdominal Exam: Soft, Normal Bowel Sounds. absent: Distended, Guarding, Tenderness, Hyperactive Bowel Sounds, Rebound - Extremities Exam Extremities Exam: absent: Calf Tenderness, Pedal Edema - Back Exam Back Exam: NORMAL INSPECTION - Neurological Exam Neurological Exam: Alert, Awake, Oriented x3 - Psychiatric Exam Psychiatric exam: Normal Affect - Skin Skin Exam: Dry, Normal Color, Warm Discharge Plan - Discharge Medications Prescriptions: Aspirin [Ecotrin] 81 mg PO DAILY #30 tabec Atorvastatin [Lipitor] 80 mg PO DIN #30 tab Carvedilol [Coreg] 12.5 mg PO BID #60 tab Clopidogrel [Plavix] 75 mg PO DAILY #30 tab Ergocalciferol [Drisdol 50,000 Intl Units Cap] 1 cap PO Q7D #10 cap Furosemide [Lasix] 40 mg PO DAILY #30 tablet Lisinopril [Zestril] 5 mg PO DAILY #30 tab metFORMIN [glucOPHAGE] 1,000 mg PO BID #60 tab Metformin HCl [Glucophage] 500 mg PO DAILY #30 tab Nicotine 21 mg/24 hr [Nicoderm Cq] 1 patch TD DAILY #30 patch Nicotine 21 mg/24 hr [Nicoderm Cq] 1 patch TD DAILY #30 patch Pantoprazole [Protonix EC Tab] 40 mg PO ACB #30 ect Potassium Chloride [K-Dur 20] 20 meq PO DAILY #15 tab - Follow Up Plan Condition: GUARDED Disposition: HOME/ ROUTINE Patient education suggested?: Yes Instructions: Myocardial Infarction (DC), Myocardial Infarction (GEN) Additional Instructions: DISCHARGE HOME AFTER CARDIOLOGY CLEARS PATIENT FOR DISCHARGE DISCHARGE MEDS PER UPDATED AMBULATORY ORDERS GIVE NEW SCRIPTS TO PATIENTS UPON DISCHARGE FOLLOW UP WITHIN 1 WEEK NO SMOKING NO ALCOHOL NO RECREATIONAL DRUG USE Referrals: Marc Mahajan MD [Primary Care Provider] - 1 Week (DISCHARGE HOME AFTER CARDIOLOGY CLEARS PATIENT FOR DISCHARGE DISCHARGE MEDS PER UPDATED AMBULATORY ORDERS GIVE NEW SCRIPTS TO PATIENTS UPON DISCHARGE FOLLOW UP WITHIN 1 WEEK NO SMOKING NO ALCOHOL NO RECREATIONAL DRUG USE) Joe Ortez MD [Staff Provider] -
[2017-08-11] MEDS: Insulin Human NPH 1 UNITS/0.01 ML SC SCH (11:07)
[2017-08-11 11:10] VITALS: BP 123/71
[2017-08-11] MEDS: Insulin Lispro (humaLOG) MEDIUM Coverage SC SCH (13:02)
--- NOTE | 2017-08-11 16:13 | PN ---
DATE: 08/11/2017 SUBJECTIVE: The patient is seen sitting in a chair on telemetry. He is scheduled to go home today. He feels well. CURRENT MEDICATIONS: Include aspirin once daily, Plavix 75 mg daily, carvedilol 12.5 mg b.i.d., insulin, Lasix 40 mg daily, Lipitor 80 mg daily, NicoDerm patch, Protonix 40 mg b.i.d., Xopenex, and Zestril 5 mg daily. OBJECTIVE: GENERAL: He is a middle-aged male who appears comfortable at the present time. VITAL SIGNS: His blood pressure is 122/70 with pulse of 80, respirations are 16. He is afebrile. HEENT: No JVD. CHEST: Few scattered rhonchi. HEART: PMI displaced laterally with soft tones noted and systolic murmur at the apex. ABDOMEN: Soft and nontender, normoactive bowel sounds. EXTREMITIES: No edema. DIAGNOSTIC DATA: Potassium is 3.5, BUN and creatinine are 17 and 0.8. White count is 7.9, hemoglobin and hematocrit are 10.5 and 32.4 with platelet count of 242,000. IMPRESSION: 1. Recent inferior wall myocardial infarction treated with emergency percutaneous coronary intervention of right coronary artery. 2. Chronic left circumflex artery occlusion. 3. Moderately severe left ventricular systolic dysfunction. 4. Carotid disease, status post prior carotid endarterectomy. Reported with residual right internal carotid artery stenosis. 5. History of tobacco abuse. 6. Moderate mitral regurgitation. 7. History of hypertension and diabetes. RECOMMENDATIONS: His current medications can be continued at the present time. He appears stable from cardiac standpoint for discharge home. Substance abuse abstinence was discussed with him. Close outpatient followup will be arranged. Eventual reassessment with LV function in 3 months is advised. If his ejection fraction remains below 35%, consideration should be given to prophylactic ICD implant. Joe Ortez MD
--- NOTE | 2017-08-12 03:54 | DS ---
The patient is seen in room 376, bed 1. HISTORY OF PRESENT ILLNESS: The patient's overnight nurse's notes were reviewed. No adverse events documented. PHYSICAL EXAMINATION: VITAL SIGNS: T-max 98.5. Telemetry shows sinus rhythm. Heart rate 87, 93, 94, 91, 83, 87. Blood pressure 114/72, respirations 18, O2 sat 98% to 95% on room air. HEENT: Head examination: Normocephalic, atraumatic. HEENT examination shows pinkish conjunctivae. Anicteric sclerae. No oropharyngeal lesion. NECK: No neck rigidity. Positive healed surgical scar of the carotid endarterectomy noted. No visible jugular venous distention. CHEST: Kyphosis. Occasional rhonchi noted upper lung [place]. CARDIOVASCULAR: S1 and S2. Regular rhythm. Questionable soft systolic murmur left sternal border, right second intercostal space, left sternal border. ABDOMEN: Soft. Positive bowel sound. GENITALIA: Male. RECTAL: Deferred. EXTREMITIES: Shows no pitting, no calf numbness, no Homans' sign. NEUROLOGIC: The patient is alert, awake, and oriented x3. Cranial nerves II through XII intact. Gait examination is independent. VASCULAR: Palpable pulses. NEUROLOGIC: Without any deficit at present. DIAGNOSTICS: On 08/11, WBC 7.9, hemoglobin/hematocrit 10.5/32.4, platelet 242. Granulocytes 72% segs. Sodium 136, potassium 3.5, chloride 100, CO2 of 26, anion gap 13, BUN 17, creatinine 0.8, GFR greater than 60, glucose 166. Fingerstick blood sugar 166, 184, 137, 186. Calcium 8.6, magnesium 1.8. LFT shows alk phos of 149. MRSA nondetected. Blood type A positive. EKG from today shows sinus rhythm, lateral ischemic changes V2 to V6. The patient's EKG reviewed. FINAL IMPRESSION, PLAN, AND DISCHARGE DIAGNOSES: 1. Acute ST-elevation inferior wall myocardial infarction. 2. Status post code heart. 3. Status post angioplasty and stent placement of the right coronary artery. 4. Tachycardia. 5. Leukocytosis. 6. Granulocytosis. 7. Normocytic anemia. 8. Hypokalemia. 9. Hypovitaminosis D. 10. Acute ST-elevation myocardial infarction with elevated troponin. 11. Glycosuria. 12. Resolving pulmonary vascular congestion. 13. Uncontrolled diabetes mellitus with hemoglobin A1c of 10.8. 14. History of poor compliance. 15. History of psoriasis. 16. Hypercholesterolemia. 17. 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 18. Acute inferior wall ST-elevation myocardial infarction with anteroseptal subendocardial injury and acute inferior infarct with right ventricular involvement. 19. Transient atrial flutter. 20. Status post selective left coronary angiogram, left ventriculography, history of angioplasty and drug-eluting stent placement of the mid and distal RCA. 21. Right femoral arteriography. 22. History of hypertension, diabetes, dyslipidemia, nicotine, alcohol, and polysubstance abuse. 23. Acute ST-elevation myocardial infarction. 24. Diffuse disease of the proximal and mid segment left anterior descending artery and diagonal branch. 25. Proximal occluded left circumflex artery. 26. Moderate inferior hypokinesis. 27. Moderately reduced left ventricular ejection fraction. 28. Insomnia. Plan at this time, the patient is cleared by Cardiology for discharge. The patient has been advised close outpatient followup with Dr. Mahajan and Dr. Ortez. The patient has been advised repeat echocardiogram in 3 months, and if ejection fraction is below 35%, consider prophylactic AICD DISCHARGE MEDICATIONS: The patient's discharge medications, aspirin 81 mg daily, Lipitor 80 mg daily, Coreg 12.5 twice a day, Plavix 75 mg daily, Drisdol 50,000 units weekly, Lasix 40 mg p.o. daily, Neurontin 300 mg at bedtime, Zestril 5 mg daily, metformin 1000 mg twice a day and 500 mg with lunch, nicotine patch 21 mg daily, Protonix 40 mg daily, K-Dur 20 mEq daily. The patient is to be discharged home after cleared by Cardiology. The patient's discharge medications as per updated ambulatory orders and new scripts which will be given to the patient upon discharge. Followup with Dr. Mahajan within [address] Ortez and in 1 week. The patient was advised no smoking, no alcohol, no recreational drug use. During this hospitalization, the patient's condition, diagnosis, test results, recommendation by all the physician were extensively and daily explained to the patient himself and also explained to the patient's daughter, Cori, who works as a nurse in [facility] [employer]. Time spent in the entire discharge process more than 45 minutes. Dictated and electronically signed, not read. Marc Mahajan MD [facility] # [id number]
== END 2017-08-11 14:16 | disposition home or self-care (01) | DRG 247 ==
LOC: ED 21:12 → CATH 21:39 → ERH 22:03 → CCU 23:05 → 3RSO 08-09 23:14
PROVIDERS: ADMIT Internal Medicine; ATTEND Internal Medicine
PROC: 027034Z Dilation of Coronary Artery, One Artery with Drug-eluting Intraluminal Device, Percutaneous Approach (ICD-10-PCS; principal; 2017-08-07)
PROC: 4A023N7 Measurement of Cardiac Sampling and Pressure, Left Heart, Percutaneous Approach (ICD-10-PCS; 2017-08-07)
PROC: B2151ZZ Fluoroscopy of Left Heart using Low Osmolar Contrast (ICD-10-PCS; 2017-08-07)
PROC: B2111ZZ Fluoroscopy of Multiple Coronary Arteries using Low Osmolar Contrast (ICD-10-PCS; 2017-08-07)
PROC: 3E073KZ Introduction of Other Diagnostic Substance into Coronary Artery, Percutaneous Approach (ICD-10-PCS; 2017-08-07)
DX: I21.19 ST elevation (STEMI) myocardial infarction involving other coronary artery of inferior wall (principal); I50.20 Unspecified systolic (congestive) heart failure; I25.10 Atherosclerotic heart disease of native coronary artery without angina pectoris; I48.92 Unspecified atrial flutter; F14.20 Cocaine dependence, uncomplicated; I11.0 Hypertensive heart disease with heart failure; E11.65 Type 2 diabetes mellitus with hyperglycemia; I08.1 Rheumatic disorders of both mitral and tricuspid valves; I27.20 Pulmonary hypertension, unspecified; E83.42 Hypomagnesemia; L40.9 Psoriasis, unspecified; E78.5 Hyperlipidemia, unspecified; F17.200 Nicotine dependence, unspecified, uncomplicated; D64.9 Anemia, unspecified; I25.5 Ischemic cardiomyopathy; E87.6 Hypokalemia; N28.9 Disorder of kidney and ureter, unspecified; M40.204 Unspecified kyphosis, thoracic region; R59.0 Localized enlarged lymph nodes; E55.9 Vitamin D deficiency, unspecified; I65.21 Occlusion and stenosis of right carotid artery; E78.00 Pure hypercholesterolemia, unspecified; G47.00 Insomnia, unspecified; Z86.73 Personal history of transient ischemic attack (TIA), and cerebral infarction without residual deficits; Z79.4 Long term (current) use of insulin